=== PATIENT | female | born 1950 | race Caucasian/White ===

== ENCOUNTER 2024-04-08 09:38 | Inpatient (IN) | payer OTHER, SELFPAY ==
[2024-04-08] VITALS (16 sets, daily range): BP systolic 111–169; BP diastolic 61–111; BMI 16.3
[2024-04-08 07:15] LABS: Glucose - Point of Care 195 mg/dl (70-99)
--- NOTE | 2024-04-08 07:16 | EDRN ---
On HIGH FLOW NC at highest setting AND NRB @ 15 L
--- NOTE | 2024-04-08 07:26 | ED.GENMED ---
History of Present Illness
General
Chief Complaint: Breathing Problem
Source: patient
Exam Limitations: none
Time Seen by Provider: 04/08/24 07:22
History of Present Illness
History of Present Illness:
See MDM
Past History
Past History
ED Past Medical History: IDDM and Other (dementia)
ED Past Surgical History: None
Social History
Tobacco: Other
Alcohol: Other
Drug: Other
Personal: Other
Living: with family
Employment: Other
Family History
Family History: Unable to obtain
Phy Exam
Physical Exam
Physical Exam:
See MDM
Scores
Heart Failure Risk
Heart Failure Risk Score: Not Applicable
Course
Orders/Labs/Results
Orders:
Orders
04/08/24 07:22
Electrocardiogram (*1) Urgent
Reason for Study: Shortness of Breath
EKG- Treatment ONCE
CR Chest Portable - 1 View Urgent
Comment:
Reason For Exam: SOB, hypoxic
Reason Study Needs to be Portable: Patient Unstable
04/08/24 07:28
COVID-19 Antigen Urgent
Source: Nasal Swab
Complete Blood Count/With Diff Urgent
Comprehensive Metabolic Panel Urgent
Lactic Acid Q4H
Comment: CANCEL 2nd LACTIC ACID IF 1st LACTIC ACID IS LESS THAN 2
NT-proBNP Urgent
Troponin I Urgent
Blood Culture Q30M
JULIOCESAR Source: Blood/Venous
Specimen Description:
04/08/24 07:33
Bipap [RESP] Urgent
Patient to use own unit?: No
Inspiratory Pressure (cm H2O): 15
Expiratory Pressure (cm H2O): 8
04/08/24 07:43
Ipratropium/Albuterol Sulfate [Duoneb] 3 ml INH R NOW ONE
04/08/24 07:45
Blood Culture Q30M
JULIOCESAR Source: Blood/Venous
Specimen Description:
04/08/24 07:56
Piperacillin/Tazo 3.375 Gram [Zosyn] 3.375 gram in 50 ml IV NOW
Vancomycin 1 Gram/200 ml [Vancocin] 1 gram in 200 ml IV NOW
04/08/24 08:10
0.9% Sodium Chloride 1000 ml [Nss] 1,000 ml IV BOLUS
04/08/24 11:30
Lactic Acid Q4H
Comment: CANCEL 2nd LACTIC ACID IF 1st LACTIC ACID IS LESS THAN 2
Abnormal Lab Results
04/08/24 04/08/24
07:14 07:28
WBC 13.3 H 10^3/uL
(4.8-10.8)
MCHC 32.6 L g/dL
(33.0-37.0)
Abs Immat Gran (auto) 0.1 H 10^3/uL
(0-0.05)
Absolute Neuts (auto) 9.7 H 10^3/uL
(1.4-6.5)
Absolute Monos (auto) 1.0 H 10^3/uL
(0.1-0.6)
Immature Gran % 0.6 H %
(0-0.5)
Lymphocytes % 16.9 L %
(20.5-51.1)
Glucose 220 H mg/dl
(70-99)
Lactic Acid 4.9 H* mmol/L
(0.7-2.0)
POC Glucose 195 H mg/dl
(70-99)
04/08/24 07:28
04/08/24 07:28
Vital Signs
Initial and Last Documented VS:
Initial Vital Signs
Pulse Resp BP Pulse Ox
107 25 163/100 89
04/08/24 07:16 04/08/24 07:16 04/08/24 07:16 04/08/24 07:16
Last Documented Vital Signs
Temp Pulse Resp BP Pulse Ox
95.1 F L 110 22 140/111 96
04/08/24 07:50 04/08/24 08:03 04/08/24 08:03 04/08/24 07:35 04/08/24 08:03
MDM/Problems Addressed
Differential Diagnosis Includes:
HPI and MDM Narrative:
73-year-old female presenting in acute respiratory distress. Initially, there was concern for hypoglycemia. Her spouse gave her soda and sugar. She then developed gurgly respirations. Per EMS, there was concern for possible aspiration with
secretions in her airway. Patient denies a history of asthma or congestive heart failure. She was unable to tolerate CPAP by EMS placed on high flow nasal cannula. However, patient still hypoxic. Will place on BiPAP patient is in acute distress
but able to give verbal consent if intubation and ventilator was necessary
states that her sugar was low and she was about to go into a diabetic coma so he was pouring soda down her throat. She then started to gag
Physical exam
General: Uncomfortable, acute respiratory distress
HEENT: protecting airway
Neck: appears supple
CV: No evidence of cyanosis. Tachycardic
Resp: Accessory muscle use. Tachypnea, rhonchorous breath sounds
Abd: Non-distended
Extremities: No deformities. No leg edema
Neuro: alert
Psych: Anxious
Skin: Intact
Problems Addressed including Acute and Chronic Conditions affecting care:
1. Acute respiratory distress
Acuity: acute
Prognosis: unstable
Details: Will place on BiPAP.
2. [ ]
Acuity: acute
Prognosis: stable
Details:
3. [ ]
Acuity: acute
Prognosis: stable
Details:
4. [ ]
Acuity: acute
Prognosis: stable
Details:
5. [ ]
Acuity:
Prognosis:
Details:
Updates
7:35 AM on reevaluation, patient tolerating BiPAP well and improving
On multiple reassessments, symptoms are improving. Given the concern for aspiration, patient started on vancomycin and Zosyn. Patient found to have an elevated lactic acid. Will start IV fluids
Differential Diagnosis (but not limited to): Aspiration pneumonia, COVID, pulmonary edema
Testing considered: D-dimer
Drug therapy (if applicable): OTC meds, please see d/c instruction regarding Rx drugs
Amount and/or Complexity of Data Reviewed
Clinical info obtained from: Patient
External data reviewed: N/A
Labs I independently reviewed (but not limited to): Elevated lactic acid
Radiology: x-ray independently reviewed: Chest x-ray concerning for pneumonia
Pulse Ox: hypoxic
EKG independently reviewed: Significant artifact noted. Normal axis, sinus rhythm, no STEMI
Embossed Or Impressed Lettering Painter: N/A
Critical Care: The high probability of a clinically significant, sudden or life threatening deterioration of the pulmonary system(s) required my full and direct attention, intervention and personal management. The aggregate critical care time was 35
minutes. This time is in addition to time spent performing reported procedures but includes the following:
[x] Data Review and interpretation
[x] Patient assessment and monitoring of vital signs
[x] Documentation
[x] Medication orders and management
Risk of Complication:
Social Determinants of health: Good social support
Discussed with other providers: Hospitalist
Escalation of Care includes Admit/Obs: Given the respiratory distress requiring BiPAP, will admit
Occasional wrong word or 'sound a like' substitutions may have occurred due to the inherent limitations of voice recognition software. Read the chart carefully and recognize, using context, where substitutions have occurred.
*Critical Care Note
Total Time (30-74mins, 75-104mins- exclusive of procedures): 35 min
ED Attending Note
-
Portions of this chart may have been created with voice recognition software.� Occasional wrong word or��sound alike� substitutions may have occurred due to the inherent limitations of voice recognition software.
Discharge Plan
Departure
Patient Disposition: Admit
Date of Disposition: 04/08/24
Time of Disposition: 08:21
Admit to: IMU
Presentation/result/management discussed w/ accepting MD/DO: Hospitalist
Discharge Problem:
Acute respiratory distress, Hypoxia, Aspiration pneumonia
Prescriptions:
No Action
metformin 500 mg Tablet
500 mg PO DAILY
losartan 25 mg Tablet
25 mg PO DAILY
Referrals:
UNKNOWN - PT NOT,INTERVIEWE [Family Provider] -
Interventions
Interventions:
*Risk Screen - Suicide Last Done: 04/08/24 07:26
*Neglect/Abuse Screening Last Done: 04/08/24 07:26
*ED COVID-19 Vaccine History Last Done: 04/08/24 07:30
ED- Cardiac Assessment Last Done: 04/08/24 07:30
ED- Pulmonary Assessment Last Done: 04/08/24 07:31
Discharge Date and Time
Print Language: FRENCH
[2024-04-08 07:40] LABS: % Basophils 0.9 % (0-2); % Eosinophils 1.1 % (0-6); % Immature Granulocytes 0.6 % (0-0.5); % Lymphocytes 16.9 % (20.5-51.1); % Monocytes 7.3 % (1.7-9.3); % Neutrophils 73.2 % (42.2-75.2); Absolute Basophils 0.1 10^3/uL (0-0.2); Absolute Eosinophils 0.1 10^3/uL (0-0.7); Absolute Immature Granulocytes 0.1 10^3/uL (0-0.05); Absolute Lymphocytes 2.2 10^3/uL (1.2-3.4); Absolute Neutrophils 9.7 10^3/uL (1.4-6.5); Mean Corp Hgb Conc. 32.6 g/dL (33.0-37.0); Mean Corpuscular Hgb 29.5 pg (27.0-31.0); Mean Corpuscular Volume 90.5 fL (81.0-99.0); Mean Platelet Volume 10.3 fL (7.4-10.4); Nucleated Red Blood Cells % 0 %; Platelet Count 314 10^3/uL (130-400); Red Blood Cell Count 4.75 10^6/uL (4.20-5.40); Red Cell Dist. Width 13.6 % (11.5-14.5); White Blood Cell Count 13.3 10^3/uL (4.8-10.8)
[2024-04-08 07:52] LABS: ALT (SGPT) 22 U/L (0-35); AST (SGOT) 34 U/L (14-36); Albumin 4.9 g/dl (3.5-5.0); Alkaline Phosphatase 116 U/L (38-126); Blood Urea Nitrogen 10 mg/dl (7-17); Calcium 9.8 mg/dl (8.4-10.2); Carbon Dioxide 24 mmol/L (22-30); Chloride 101 mmol/L (98-107); Glucose 220 mg/dl (70-99); Potassium 3.6 mmol/L (3.5-5.1); Sodium 140 mmol/L (135-145); Total Bilirubin 0.6 mg/dl (0.2-1.3); Total Protein 8.1 g/dl (6.3-8.2); eGFR > 60.00
[2024-04-08 07:56] LABS: COVID-19 Antigen Negative (Negative)
[2024-04-08 08:03] LABS: NT-proBNP 1280 pg/ml; Troponin I < 0.012 ng/ml
[2024-04-08] MEDS: DUONEB 3 ML INH (08:03)
[2024-04-08 08:04] LABS: Lactic Acid 4.9 mmol/L (0.7-2.0)
[2024-04-08] MEDS: ZOSYN 50 IV ×3 (08:06→20:36)
--- NOTE | 2024-04-08 08:09 | EDRN ---
provider notifoied of critical value lactic
[2024-04-08] MEDS: NSS 1000 IV ×2 (08:15→12:30)
[2024-04-08] MEDS: VANCOCIN 200 IV (08:37)
--- NOTE | 2024-04-08 08:59 | HPS.HSE ---
Family Physician
-
Family Physician: INTERVIEWE UNKNOWN - PT NOT
Chief Complaint
-
resp distress
History of Present Illness
HPI: 73-year-old female PMH IDDM, Paroxysmal Atrial Fibrillation (not on OAC), Left Femur Fracture s/p ORIF, who was found unresponsive with low BG (45) by her and was given soda and sugar which resulted in respiratory distress. Her MS
improved with improved BS, however she developed SOB. She was unable to tolerate CPAP by EMS, hence was placed on high flow nasal cannula.
Patient remained hypoxic and was placed on BiPAP in the ED, which was then changed to high flow NC at 80%.
Patient is awake, but is a poor historian due to likely underlying cognitive impairment. She is NOT orientated to time (cannot recall which month/year we are in).
Collateral history obtained from on the phone.
Medical History
Past Medical History
Past Medical History: Reports Other
Additional Past Medical History:
IDDM
Paroxysmal Atrial Fibrillation (not on OAC)
Left Femur Fracture s/p ORIF
Past Surgical History: Reports Other
Social History
Unable to obtain full social history at this time due to: Dementia
Tobacco: Non-smoker
Personal:
Living: With Family
Family History
Family History: Not pertinent
Allergies / Home Medications
Allergies reflects when Allergies were last updated in [employer].
Home Medications with original date entered in [employer]
Allergy/Medication List:
Allergies
Allergy/AdvReac Type Severity Reaction Status Date / Time
No Known Allergies Allergy Unverified 04/08/24 07:39
Home Medications
insulin aspart U-100 100 unit/mL (3 mL) subcutaneous pen (Novolog FlexPen U-100 Insulin aspart) 0 sliding scale dose SC AC 04/08/24
insulin glargine 100 unit/mL (3 mL) subcutaneous pen (Lantus Solostar U-100 Insulin) 13 unit SC DAILY 04/08/24
losartan 25 mg tablet 25 mg PO DAILY 04/08/24
metformin 500 mg tablet 500 mg PO DAILY 04/08/24
vit C 333.3 mg-olive leaf extract 333.3 [id number]-[id number] 83.3 mg capsule (Immune Essentials) 1 cap PO DAILY 04/08/24
Review of Systems
-
Respiratory: Reports See HPI and Trouble Breathing
Physical Exam
Vital Signs
Vital Signs
Temp Pulse Resp BP Pulse Ox
35.1 C L 110 22 140/111 96
04/08/24 07:50 04/08/24 08:03 04/08/24 08:03 04/08/24 07:35 04/08/24 08:03
Physical Exam
General: Well Developed, Comfortable, Conversant, Respiratory Distress and Appears Chronically Ill
HEENT: NormoCephalic, Moist mucous membranes, Atraumatic and Oxygen (high flow NC)
Respiratory: Clear and Non Labored Respirations; No Accessory Resp Muscle Use
Cardiac: S1/S2 and Regular Rhythm; No Murmur or Rub
GI: Soft, Non Tender, Non Distended and Normal Bowel Sounds; No Organomegaly
Rectal: Deferred by Provider
Musculoskeletal: No Clubbing, No Cyanosis and No Edema
Skin: No Rash
Neuro: Awake; No AO x 3
Psych: Calm; No Intact Judgment/Insight
Laboratory Results
-
04/08/24 07:28
04/08/24 07:28
Laboratory Results
Lactic Acid 4.9 mmol/L (0.7-2.0) H* 04/08/24 07:28
Total Bilirubin 0.6 mg/dl (0.2-1.3) 04/08/24 07:28
AST 34 U/L (14-36) 04/08/24 07:28
ALT 22 U/L (0-35) 04/08/24 07:28
Alkaline Phosphatase 116 U/L (38-126) 04/08/24 07:28
Troponin I < 0.012 ng/ml 04/08/24 07:28
Data Reviewed
-
Diagnostic Radiology: Image Personally Visualized and interpreted and Report Reviewed by me
Lab Data: Labs Reviewed by me
Impression/Plan
-
HPI: 73-year-old female PMH IDDM, Paroxysmal Atrial Fibrillation (not on OAC), Left Femur Fracture s/p ORIF, who was found unresponsive with low BG (45) by her and was given soda and sugar which resulted in respiratory distress. Her MS
improved with improved BS, however she developed SOB. She was unable to tolerate CPAP by EMS, hence was placed on high flow nasal cannula.
Patient remained hypoxic and was placed on BiPAP in the ED, which was then changed to high flow NC at 80%.
Patient is awake, but is a poor historian due to likely underlying cognitive impairment. She is NOT orientated to time (cannot recall which month/year we are in).
Collateral history obtained from on the phone.
A/P:
# Acute hypoxic resp failure due to aspiration
# Likely Aspiration pneumonitis vs pneumonia from given soda and sugar given during unresponsiveness
Cont high flow NC, wean O2 as tolerated, she is not on home O2
CXR noted Mild to moderate pulmonary edema. Small left pleural effusion and bibasilar probable atelectasis.
Check procal, Check MRSA screen
Follow blood Cx that were sent from ED
Cont Zosyn coverage for now
SPL eval
Pulm CS
# Paroxysmal Atrial Fibrillation
Pt not on rate controlling meds or anticoagulation (Eliquis was taken off by PCP per )
# IDDM
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
Check A1C
Holding LEAD DATA ARCHITECT basal insulin Lantus due to hypoglycemia at home (BG at 45)
SSI coverage.
# Clinical deconditioning per
Pt has not been out of room much
PT OT eval
# Subjective back pain
check
DVT Prophylaxis: Lovenox SQ
Code Status: Full
d/w on the phone
[2024-04-08 10:00] LABS: Procalcitonin 0.07 ng/ml (0.0-0.25)
--- NOTE | 2024-04-08 10:03 | EDRN ---
Dr Marion states that XRAYS of LS sp/ TSP can be obtained in the AM after her resp status has stabilized and she can better tolerate them
[2024-04-08] MEDS: ZOFRAN 4 MG IV (12:20)
[2024-04-08 12:39] LABS: Lactic Acid 3.8 mmol/L (0.7-2.0)
--- NOTE | 2024-04-08 13:17 | CON.PUL ---
Consultation
Consultation Request
Date/Time Consultation Requested: 04/08
Date/Time Consultation Performed: 04/08
Reason for Consultation: Hypoxia
Medical History
-
History of Present Illness:
History obtained from the chart, hospital records, ED records, outpatient records, patient. Attempted to contact , no answer. 73-year-old female who states she woke up in the [place] because of hypoglycemia. She usually has to take sugar
and soda in the melan[place]. Her monitor alarms when her sugar goes down. Per ED records, she developed respiratory distress after this, concern for aspiration. EMS was contacted. Upon arrival to [facility], pulse 107, breathing at 25,
blood pressure 163/100, 89%. Patient was unable to tolerate CPAP placed by EMS and instead was placed on high flow oxygen. Per ED records, patient was in acute respiratory distress, with accessory muscle use, rhonchi bilaterally. We are asked to
help from pulmonary standpoint 04/08/2024
Presently during my assessment, patient is comfortable in no respiratory distress. She remains on high flow oxygen. She is conversant, denies any shortness of breath. Few crackles at base otherwise adequate air exchange
.
PMH: Diabetes, history of DKA, chronic compression fracture. History of fall with left hip fracture status post replacement 2021. History of Covid 2021. History of paroxysmal atrial fibrillation/SVT, hypertension, dementia. Records also suggest
history of noncompliance
Past Medical History
Past Medical History: None (See above)
Past Surgical History: None (See above)
Social History
Tobacco: Former Smoker ([id number], quit around 1999)
Alcohol: None
Drug: None
Personal:
Living: With Family
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
Family History
Family History: Other (Negative for blood clots, pneumonia, lung cancer)
Allergies / Home Medications
Allergies
Allergy/AdvReac Type Severity Reaction Status Date / Time
No Known Allergies Allergy Unverified 04/08/24 07:39
Home Medications
�Medication �Instructions �Recorded �Confirmed �Last Taken �Type
insulin aspart U-100 100 unit/mL 0 sliding scale dose SC AC Diabetes 04/08/24 04/08/24 Unknown History
(3 mL) subcutaneous pen (Novolog
FlexPen U-100 Insulin aspart)
insulin glargine 100 unit/mL (3 13 unit SC DAILY Diabetes 04/08/24 04/08/24 Unknown History
mL) subcutaneous pen (Lantus
Solostar U-100 Insulin)
losartan 25 mg tablet 25 mg PO DAILY Blood Pressure 04/08/24 04/08/24 Unknown History
metformin 500 mg tablet 500 mg PO DAILY Diabetes 04/08/24 04/08/24 Unknown History
vit C 333.3 mg-olive leaf extract 1 cap PO DAILY Supplement 04/08/24 04/08/24 Unknown History
333.3 rn-[id number]-[id number] 83.3 mg
capsule (Immune Essentials)
Review of Systems
-
History Source: Patient and Family
All other systems: Negative unless noted
Vitals / Labs / Diagnostic Testing
Vital Signs
Temp Pulse Resp BP Pulse Ox
95.1 F L 100 21 154/85 93
04/08/24 07:50 04/08/24 12:45 04/08/24 12:45 04/08/24 12:03 04/08/24 12:45
Lab Data
04/08/24 07:28
04/08/24 07:28
Diagnostic Testing:
Physical Exam
-
HEENT: Normocephalic and Anicteric
Cardiovascular: S1/S2, Regular Rhythm, Murmur (n) and Rub (n)
Respiratory: Wheeze (n), Rales (Few at base), Rhonchi (n) and Non-Labored Respirations
GI: Soft, Non Distended and Non Tender
Neurology: Awake, Alert, Oriented and No Motor Deficits (Moves all extremities, able to sit up with minimal assistance)
Skin: Good Color and Other (Right upper extremity tattoo)
General: Comfortable
Assessment
-
73-year-old female with history of diabetes, noncompliance, history of DKA, paroxysmal atrial fibrillation, questionable dementia who presents with acute respiratory insufficiency, hypoxia, suspected aspiration. Patient required high flow oxygen in
the field. We are asked to help from pulmonary standpoint
Suspected acute aspiration
Bibasilar infiltrate
Acute hypoxic respiratory insufficiency requiring high flow oxygen
80% saturation
Insulin-dependent diabetes
Noncompliant
History of DKA 2021, history of frequent hypoglycemia according to patient
Leukocytosis
Elevated lactate
Sinus tachycardia
Conditions present prior to admission
Paroxysmal atrial fibrillation, not on anticoagulation
History of fall with left femur fracture, ORIF 2021
Dementia
52-empn-spex history of smoking, quit 1999
Plan/recommendations
At this time, patient appears to be comfortable. She is not in respiratory distress. She remains on high flow oxygen
96% saturation, wean down to 60 L / 70%
Chest exam with bibasilar crackles otherwise good air exchange. ED records suggest respiratory distress with rhonchi. This appears to clearly have improved at least by exam
Moving forward
Continue to wean oxygen as you are. Suspect this may have been an acute aspiration event
Presented while 'drinking sugar water' in the middle the night for hypoglycemia. Per records, patient developed gurgling and respiratory distress thereafter
Continue Zosyn therapy for now
Follow blood sugars. Anion gap presently 16. Follow given history of DKA
Elevated lactate, trending down
No indication for BiPAP at this time
Head of bed elevated, aspiration precautions
DVT prophylaxis: Remains on Lovenox
Attempted to contact for additional information. No answer
We will follow
--- NOTE | 2024-04-08 14:21 | PTCARENOTE ---
Pt received from ED. Pt with intermittent confusion. Admission questions completed to best of pt's ability.
--- NOTE | 2024-04-08 15:17 | PTOTSP ---
Dysphagia Evaluation
Patient is a 73 year old female admitted with respiratory distress after a suspected aspiration event while unresponsive due to low blood sugar. She is at an elevated acute risk for dysphagia/aspiration at this time given her current respiratory
status (i.e., 60 LPM HFNC, 70% FiO2) and altered mentation (restless, confused, poor awareness of swallowing tasks, required repeated direct verbal cues in order to swallow). Patient has chronic risk factors for dysphagia (i.e., dementia).
Recommend:
1. Temporary NPO
2. Medications via non-oral means
3. Hold Aspiration Risk Hydration Protocol due to AMS.
4. Dysphagia follow up at the acute care level.
[2024-04-08] MEDS: APRESOLINE 5 MG IV (15:58)
--- NOTE | 2024-04-08 17:10 | PTCARENOTE ---
Received pt from the ED on high flow 60L O2, 70% O2, POX 96%. AAOx2, restless and participates in confused conversation, can follow commands but has a short attention span and requires constant redirection. Lungs are coarse @ the bases, moist
occasional cough. Remainder of assessment as documented. Pt arrives hypertensive, PRN Hydralazine administered, see MAR. Pt seen and assessed by speech, recommended to continue NPO status, without PO meds, until pt's mentation improves and
additional assessments can be completed. Pt currently resting comfortably in bed, bed alarm in place, call ramirez within reach.
[2024-04-08 17:24] LABS: Lactic Acid 3.5 mmol/L (0.7-2.0)
[2024-04-08 17:56] LABS: Glucose - Point of Care 364 mg/dl (70-99)
[2024-04-08] MEDS: LOVENOX 30 MG SC (18:15)
[2024-04-08] MEDS: NOVOLOG FLEXPEN-LOW RESISTANCE 5 UNITS SC (18:19)
[2024-04-08 21:41] LABS: Lactic Acid 4.4 mmol/L (0.7-2.0)
[2024-04-08] MEDS: LASIX 20 MG IV (22:22)
[2024-04-08 22:50] LABS: B.E. 2.1 mmol/L; HCO3 25.3 mmol/L (21-28); O2 Saturation % 97.4 % (94-98); PCO2 34 mmHg (32-35); PO2 72 mmHg (83-108); pH 7.48 (7.35-7.45)
[2024-04-08 23:43] LABS: Glucose - Point of Care 199 mg/dl (70-99)
[2024-04-09] VITALS (15 sets, daily range): BP systolic 104–135; BP diastolic 57–89; PULSE 91–92; O2SAT 95–96; BMI 16.3
[2024-04-09 01:40] LABS: Hematocrit 27.5 % (37.0-47.0); Hemoglobin 9.6 g/dL (12.0-16.0); Mean Corp Hgb Conc. 34.9 g/dL (33.0-37.0); Mean Corpuscular Hgb 29.8 pg (27.0-31.0); Mean Corpuscular Volume 85.4 fL (81.0-99.0); Mean Platelet Volume 9.9 fL (7.4-10.4); Platelet Count 159 10^3/uL (130-400); Red Blood Cell Count 3.22 10^6/uL (4.20-5.40); Red Cell Dist. Width 13.6 % (11.5-14.5); White Blood Cell Count 6.2 10^3/uL (4.8-10.8)
[2024-04-09] MEDS: NOVOLOG FLEXPEN-LOW RESISTANCE 2 UNITS SC ×2 (01:41→05:57)
[2024-04-09 01:44] LABS: Glucose - Point of Care 208 mg/dl (70-99)
[2024-04-09 02:14] LABS: ALT (SGPT) 14 U/L (0-35); AST (SGOT) 31 U/L (14-36); Albumin 2.1 g/dl (3.5-5.0); Alkaline Phosphatase 53 U/L (38-126); Blood Urea Nitrogen 10 mg/dl (7-17); Carbon Dioxide 18 mmol/L (22-30); Chloride 115 mmol/L (98-107); Estimated Creatinine Clearance 60 ml/min; Glucose 166 mg/dl (70-99); Potassium 3.2 mmol/L (3.5-5.1); Sodium 137 mmol/L (135-145); Total Bilirubin 0.8 mg/dl (0.2-1.3); Total Protein 3.9 g/dl (6.3-8.2); eGFR > 60.00
[2024-04-09 02:25] LABS: Absolute Neutrophils -Man Diff 5.7 10^3/uL (1.4-6.5); Band Neutrophils 19 % (0-3); Lymphocytes 5 % (20-51); Monocytes 3 % (2-9); Normal RBC Morphology Yes; Platelets Checked Yes; Segmented Neutrophils 73 % (42-75); Total Cells Counted 100
[2024-04-09 02:30] LABS: Lactic Acid 1.7 mmol/L (0.7-2.0)
[2024-04-09] MEDS: ZOSYN 50 IV ×4 (02:35→20:43)
[2024-04-09] MEDS: NSS 1000 IV (05:56)
[2024-04-09 06:02] LABS: Glucose - Point of Care 243 mg/dl (70-99)
[2024-04-09 06:03] LABS: Hematocrit 38.7 % (37.0-47.0); Hemoglobin 12.7 g/dL (12.0-16.0); Mean Corp Hgb Conc. 32.8 g/dL (33.0-37.0); Mean Corpuscular Volume 88.4 fL (81.0-99.0); Nucleated Red Blood Cells % 0 %; Platelet Count 203 10^3/uL (130-400); Red Blood Cell Count 4.38 10^6/uL (4.20-5.40); Red Cell Dist. Width 13.5 % (11.5-14.5); White Blood Cell Count 11.1 10^3/uL (4.8-10.8)
[2024-04-09 06:25] LABS: Lactic Acid 2.8 mmol/L (0.7-2.0)
[2024-04-09 06:30] LABS: Blood Urea Nitrogen 16 mg/dl (7-17); Calcium 8.7 mg/dl (8.4-10.2); Carbon Dioxide 23 mmol/L (22-30); Chloride 102 mmol/L (98-107); Estimated Creatinine Clearance 36 ml/min; Glucose 235 mg/dl (70-99); Magnesium 1.3 mg/dl (1.6-2.3); Potassium 5.2 mmol/L (3.5-5.1); Sodium 135 mmol/L (135-145); eGFR 58.75
--- NOTE | 2024-04-09 06:34 | PTCARENOTE ---
critical received for calcium of 6.0. labs were drawn above running N/S. UTILITY FORESTER aware of skewed labs. Instructed to redraw labs in AM.
--- NOTE | 2024-04-09 07:41 | W.PN.HOSP.TC ---
Today's Communication/Plan
-
see A/P
Assessment / Plan
Assessment / Plan
HPI: 73-year-old female PMH IDDM, Paroxysmal Atrial Fibrillation (not on OAC), Left Femur Fracture s/p ORIF, who was found unresponsive with low BG (45) by her and was given soda and sugar which resulted in respiratory distress. Her MS
improved with improved BS, however she developed SOB. She was unable to tolerate CPAP by EMS, hence was placed on high flow nasal cannula.
Patient remained hypoxic and was placed on BiPAP in the ED, which was then changed to high flow NC at 80%.
Patient is awake, but is a poor historian due to likely underlying cognitive impairment. She is NOT orientated to time (cannot recall which month/year we are in).
Collateral history obtained from on the phone.
A/P:
# Acute hypoxic resp failure due to aspiration pneumonitis from given soda and sugar during unresponsive episode
Cont high flow NC, wean O2 as tolerated, she is not on home O2
CXR noted Mild to moderate pulmonary edema. Small left pleural effusion and bibasilar probable atelectasis.
procal negative,
Follow MRSA screen
Follow blood Cx that were sent from ED
Cont Zosyn coverage x5 days
NPO with gentle IVF, IV lasix 20 mg x2 doses
Daily SPL eval
Pulm on board
# Hypomagnesemia
replete IV
# Paroxysmal Atrial Fibrillation
Pt not on rate controlling med or anticoagulation (Eliquis was taken off by PCP per )
# IDDM
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
Check A1C
resume low dose Lantus at 5 units daily (SHORTAGE WORKER 13 units daily)
SSI coverage.
# Clinical deconditioning per
Pt has not been out of room much
PT OT eval
# Subjective back pain
check thoracic/lumbar XR when able
# Dementia, unknown type
Pt is awake but not orientated. This appears to be her baseline MS per
DVT Prophylaxis: Lovenox SQ
Code Status: Full
left voicemail for
Anticipated Discharge: > 48 hours
Subjective/Interval History
-
Date of Service: April 09, 2024
Objective Data
-
Labs:
Laboratory Results
04/08/24 04/09/24 04/09/24
22:45 01:31 05:49
WBC 6.2 11.1 H
Hgb 9.6 L D 12.7 D
Hct 27.5 L 38.7
Plt Count 159 D 203 D
HCO3 25.3
Sodium 137 135
Potassium 3.2 L 5.2 H D
Chloride 115 H 102
Carbon Dioxide 18 L 23
BUN 10 16
Creatinine 0.6 1.0
Glucose 166 H 235 H
Calcium 6.0 L* D 8.7 D
Total Bilirubin 0.8
AST 31
ALT 14
Alkaline Phosphatase 53
Vital Signs:
Vital Signs
Temp Pulse Resp BP Pulse Ox
36.9 C 97 18 128/73 99
04/09/24 03:33 04/09/24 01:30 04/09/24 01:30 04/09/24 00:11 04/09/24 04:30
I&O
04/08/24 04/09/24 04/10/24
06:59 06:59 06:59
Intake Total 720 / 720
Output Total 100 / 100
Balance 620 / 620
Review of Systems
-
Unable to obtain full review of systems at this time due to: Dementia
Physical Exam
-
General: Well Developed, Well Nourished, Comfortable, Respiratory Distress, Conversant and Appears Chronically Ill
HEENT: Normocephalic, Atraumatic, Nose Appears Normal, Ears Appear Normal and Oxygen (high flow NC)
Respiratory: Clear to Auscultation and Non Labored Respirations; Negative Accessory Resp Muscle Use
Cardiac: Regular Rhythm and S1/S2
GI: Soft, Nontender, Nondistended and Normal Bowel Sounds
Skin: Warm and Dry
Neuro: Awake
Psych: Calm and Apparent Dementia
Data Reviewed
-
Diagnostic Radiology: Image personally visualized and interpreted and Report Reviewed by me
Labs: Labs Reviewed by me
[2024-04-09] MEDS: LASIX 20 MG IV (08:49)
[2024-04-09] MEDS: MAGNESIUM SULFATE 50 IV (08:52)
[2024-04-09] MEDS: LANTUS 0.05 UNITS SC (09:03)
[2024-04-09 09:14] LABS: Glucose - Point of Care 203 mg/dl (70-99)
[2024-04-09 09:49] LABS: Glycohemoglobin (HgbA1c) 8.9 % (4.0-5.6)
--- NOTE | 2024-04-09 10:47 | W.PN.PUL3 ---
Today's Communication / Plan
-
HFNC weaning down, can likely transition to midflow is continues to improve
Remains NPO, speech following
Continue abx, can likely stop at 5 days for aspiration
Encourage OOB, PT/OT
Nebs PRN, IS
Slow progress
Assessment
-
73-year-old female with history of diabetes, noncompliance, history of DKA, paroxysmal atrial fibrillation, questionable dementia who presents with acute respiratory insufficiency, hypoxia, suspected aspiration. Patient required high flow oxygen in
the field. We are asked to help from pulmonary standpoint
Suspected acute aspiration
Bibasilar infiltrate
Acute hypoxic respiratory insufficiency requiring high flow oxygen
80% saturation
Insulin-dependent diabetes
Noncompliant
History of DKA 2021, history of frequent hypoglycemia according to patient
Leukocytosis
Elevated lactate
Sinus tachycardia
Conditions present prior to admission
Paroxysmal atrial fibrillation, not on anticoagulation
History of fall with left femur fracture, ORIF 2021
Dementia
[id number] history of smoking, quit 1999
Plan/recommendations
At this time, patient appears to be comfortable. She is not in respiratory distress.
She remains on high flow oxygen
96% saturation, weaned down to 40 Lpm / 70%, can likely wean down further
Chest exam with bibasilar crackles otherwise good air exchange.
ED records suggest respiratory distress with rhonchi. This appears to clearly have improved at least by exam
ABG 04/08/24: 7.48/34/72/[address] if not improving
proBNP 1280
ECHO from 2020 with preserved function
She is maintained NPO
Suspect this may have been an acute aspiration event
Presented while 'drinking sugar water' in the middle the night for hypoglycemia. Per records, patient developed gurgling and respiratory distress thereafter
Speech following, high risk
Continue Zosyn therapy for now
Follow blood sugars. Anion gap presently 16. Follow given history of DKA
Elevated lactate, trending down
No indication for BiPAP at this time
Head of bed elevated, aspiration precautions
DVT prophylaxis: Remains on Lovenox
Attempted to contact for additional information. No answer
We will follow
Diagnostic Data
CXR 04/08/24- Mild to moderate pulmonary edema. Small left pleural effusion and bibasilar probable atelectasis.
11/08/21- No radiographic evidence of acute cardiopulmonary abnormality.
ECHO 05/29/21- Normal left ventricular size, wall thickness and systolic function. No regional wall motion abnormalities are seen. LV ejection fraction is 65-70% by visual assessment. Trace tricuspid regurgitation. No significant valvular disease.
Compared to previous echo from August 05, 2015, there is no significant change.
Subjective Data
-
Date of Service:
Date of Service: April 09, 2024
Chief Complaint: Pulmonary Follow Up
Subjective:
remains on HFNC, but weaning down
no new complaints
feels tired
Objective Data
Data Reviewed
Vital Signs / I&O / Oxygen:
Vital Signs
Temp Pulse Resp BP Pulse Ox
98.6 F 91 18 135/78 97
04/09/24 07:12 04/09/24 08:49 04/09/24 01:30 04/09/24 08:49 04/09/24 08:23
Intake and Output
04/08/24 04/09/24 04/10/24
06:59 06:59 06:59
Intake Total 720 / 720
Output Total 100 / 100
Balance 620 / 620
SaO2 97
Nasal Cannula flow liters per 55
minute
Physical Exam
General: Comfortable, Other (deconditioned) and Other (NAD, chronically ill appearing)
HEENT: Normocephalic, Anicteric and Moist Mucous Membranes
Cardiovascular: S1-S2 and Regular Rhythm
Respiratory: Crackles and Non-Labored Respirations
GI: Soft, Non Distended and Non Tender
Neurology: Awake, Alert, Oriented, AO x 3 and No Motor Deficits
Skin: Warm, Dry and Good Color
Labs/Micro/Reports
Lab Data
04/09/24 05:49
04/09/24 05:49
Laboratory Results
04/08/24
22:45
pH 7.48 H
pCO2 34
pO2 72 L
HCO3 25.3
O2 Delivery Level
Microbiology
04/08/24 07:45 Blood/Venous Blood Culture - Preliminary
No Growth in 24 hours- Final report to follow
04/08/24 07:28 Blood/Venous Blood Culture - Preliminary
No Growth in 24 hours- Final report to follow
--- NOTE | 2024-04-09 10:55 | PTOTSP ---
Speech Therapy
Presentation: Patient was oriented to self and remains confused but cooperative.
Swallowing Function: MECHANICAL PENCILS ASSEMBLER trialed ice chips individually presented in which patient appeared to tolerate as she SpO2 remained WNL and she did not exhibit any overt clinical s/sx of aspiration. Patient was presented with several tsp presentations of
thin liquid in which she demonstrated reflexive coughing and her SpO2 decreased but remained WNL.
Given patient's current clinical presentation and oxygen requirement, recommend NPO at this time with supervised ice chips (ARHP) after oral care.
Recommendations: NPO with ARHP (sparing ice chips)
Plan: MECHANICAL PENCILS ASSEMBLER will continue to follow; pending hospitalization.
[2024-04-09 11:11] LABS: Absolute Neutrophils -Man Diff 10.1 10^3/uL (1.4-6.5); Band Neutrophils 28 % (0-3); Lymphocytes 5 % (20-51); Segmented Neutrophils 63 % (42-75)
[2024-04-09 11:12] LABS: Monocytes 2 % (2-9); Normal RBC Morphology Yes; Platelets Checked YES
[2024-04-09 11:14] LABS: Total Cells Counted 100
--- NOTE | 2024-04-09 11:45 | RESPNOTE ---
High-flow nasal cannula decreased to 40 LPM and 60%, SpO2 96%.
[2024-04-09 12:20] LABS: Glucose - Point of Care 247 mg/dl (70-99)
[2024-04-09] MEDS: NOVOLOG FLEXPEN-LOW RESISTANCE 3 UNITS SC (12:53)
--- NOTE | 2024-04-09 14:35 | PTCARENOTE ---
Pt noted in Afib in the 160's on the monitor ~ 4 minutes, converted to NSR without intervention. Pt asleep during this episode, arouses easily, reports no complaints. BP 106/60. Hospitalist made aware, no new orders at this time.
[2024-04-09 15:36] LABS: NT-proBNP 5290 pg/ml
[2024-04-09 18:07] LABS: Glucose - Point of Care 144 mg/dl (70-99)
[2024-04-09] MEDS: LOVENOX 30 MG SC (18:17)
[2024-04-09] MEDS: NOVOLOG FLEXPEN-LOW RESISTANCE SC ×2 (18:17→23:56)
[2024-04-09 23:55] LABS: Glucose - Point of Care 127 mg/dl (70-99)
[2024-04-10] VITALS (15 sets, daily range): BP systolic 116–190; BP diastolic 66–124; BMI 16.3
[2024-04-10] MEDS: NSS 1000 IV ×2 (00:11→17:55)
[2024-04-10] MEDS: ZOSYN 50 IV ×4 (02:13→20:20)
[2024-04-10 05:01] LABS: % Basophils 0.7 % (0-2); % Eosinophils 0.4 % (0-6); % Lymphocytes 7.8 % (20.5-51.1); % Monocytes 5.5 % (1.7-9.3); % Neutrophils 84.6 % (42.2-75.2); Absolute Basophils 0.1 10^3/uL (0-0.2); Absolute Eosinophils 0.1 10^3/uL (0-0.7); Absolute Immature Granulocytes 0.1 10^3/uL (0-0.05); Absolute Lymphocytes 0.9 10^3/uL (1.2-3.4); Absolute Monocytes 0.6 10^3/uL (0.1-0.6); Absolute Neutrophils 9.5 10^3/uL (1.4-6.5); Hematocrit 32.8 % (37.0-47.0); Hemoglobin 11.1 g/dL (12.0-16.0); Mean Corp Hgb Conc. 33.8 g/dL (33.0-37.0); Mean Corpuscular Hgb 29.9 pg (27.0-31.0); Mean Corpuscular Volume 88.4 fL (81.0-99.0); Mean Platelet Volume 10.1 fL (7.4-10.4); Nucleated Red Blood Cells % 0 %; Platelet Count 181 10^3/uL (130-400); Red Blood Cell Count 3.71 10^6/uL (4.20-5.40); White Blood Cell Count 11.2 10^3/uL (4.8-10.8)
[2024-04-10 05:24] LABS: Glucose - Point of Care 116 mg/dl (70-99)
[2024-04-10 05:27] LABS: Blood Urea Nitrogen 24 mg/dl (7-17); Calcium 7.9 mg/dl (8.4-10.2); Carbon Dioxide 25 mmol/L (22-30); Chloride 104 mmol/L (98-107); Estimated Creatinine Clearance 33 ml/min; Glucose 110 mg/dl (70-99); Magnesium 1.9 mg/dl (1.6-2.3); Potassium 3.6 mmol/L (3.5-5.1); Sodium 136 mmol/L (135-145)
[2024-04-10] MEDS: NOVOLOG FLEXPEN-LOW RESISTANCE SC ×2 (05:30→12:20)
--- NOTE | 2024-04-10 08:01 | W.PN.HOSP.TC ---
Addendum entered and electronically signed by Clare Marion MD 04/10/24 12:18:
Lantus held this morning due to normoglycemia (was ordered for 5 units, BOTTOM STAINER at 13 units daily).
Adjust Lantus to 3 units daily given patient started with pur�ed diet
Original Note:
Today's Communication/Plan
-
see A/P
Assessment / Plan
Assessment / Plan
HPI: 73-year-old female PMH IDDM, Paroxysmal Atrial Fibrillation (not on OAC), Left Femur Fracture s/p ORIF, who was found unresponsive with low BG (45) by her and was given soda and sugar which resulted in respiratory distress. Her MS
improved with improved BS, however she developed SOB. She was unable to tolerate CPAP by EMS, hence was placed on high flow nasal cannula.
Patient remained hypoxic and was placed on BiPAP in the ED, which was then changed to high flow NC at 80%.
Patient is awake, but is a poor historian due to likely underlying cognitive impairment. She is NOT orientated to time (cannot recall which month/year we are in).
Collateral history obtained from on the phone.
A/P:
# Acute hypoxic resp failure due to aspiration pneumonitis from given soda and sugar during unresponsive episode
Cont high flow NC, weaned from 90% to 50%, cont to wean O2 as tolerated, she is not on home O2
CXR noted Mild to moderate pulmonary edema. Small left pleural effusion and bibasilar probable atelectasis.
procal negative,
Follow MRSA screen
blood Cx sent from ED negative
Cont Zosyn coverage x5 days
NPO with gentle IVF, s/p IV lasix 20 mg x2 doses due to CXR noted Mild to moderate pulmonary edema. Hold further lasix with ROSANNA
Daily SPL eval,
cont gentle IVF while NPO
Pulm on board
# Hypomagnesemia
repleted IV
# ROSANNA likely due to IV Lasix
SCr 1.1 from 0.6
Monitor closely
cont gentle IVF
# Paroxysmal Atrial Fibrillation
Pt not on rate controlling med or anticoagulation (Eliquis was taken off by PCP per )
# IDDM
# Concern for hypoglycemia BOTTOM STAINER
A1C 8.9%
resumes Lantus low dose at 5 units daily (BOTTOM STAINER 13 units daily)
SSI coverage.
# Clinical deconditioning per
Pt has not been out of room much
PT OT recc SNF
# Subjective back pain
check thoracic/lumbar XR when able
# Dementia, unknown type
Pt is awake but not orientated. This appears to be her baseline MS per
DVT Prophylaxis: Lovenox SQ
Code Status: Full
Anticipated Discharge: > 48 hours
Subjective/Interval History
-
Date of Service: April 10, 2024
Objective Data
-
Labs:
Laboratory Results
04/10/24
04:53
WBC 11.2 H
Hgb 11.1 L
Hct 32.8 L
Plt Count 181
Sodium 136
Potassium 3.6 D
Chloride 104
Carbon Dioxide 25
BUN 24 H
Creatinine 1.1 H
Glucose 110 H
Calcium 7.9 L
Vital Signs:
Vital Signs
Temp Pulse Resp BP Pulse Ox
37.2 C 85 18 123/77 96
04/10/24 02:53 04/10/24 06:00 04/10/24 06:00 04/10/24 06:00 04/10/24 06:00
I&O
04/09/24 04/10/24 04/11/24
06:59 06:59 06:59
Intake Total 720 / 720 870 / 870
Output Total 100 / 100 150 / 150
Balance 620 / 620 720 / 720
Review of Systems
-
Unable to obtain full review of systems at this time due to: Dementia
All other systems: Reviewed and negative
Physical Exam
-
General: Well Developed, Well Nourished, Comfortable, Respiratory Distress, Conversant and Appears Chronically Ill
HEENT: Normocephalic, Atraumatic, Nose Appears Normal, Ears Appear Normal and Oxygen (high flow NC)
Respiratory: Clear to Auscultation and Non Labored Respirations; Negative Accessory Resp Muscle Use
Cardiac: Regular Rhythm and S1/S2
GI: Soft, Nontender, Nondistended and Normal Bowel Sounds
Skin: Warm and Dry
Neuro: Awake
Psych: Calm and Apparent Dementia
Data Reviewed
-
Diagnostic Radiology: Image personally visualized and interpreted and Report Reviewed by me
Labs: Labs Reviewed by me
[2024-04-10] MEDS: LANTUS SC (08:34)
--- NOTE | 2024-04-10 09:35 | PTCARENOTE ---
Assumed care of pt from night RN, pt AAOx2-3, rings appropriately. Continues on high-flow O2 at 15L/40%, SPO2 96%. Pt coughing up thick [place] mucous at times. IV Zosyn administered as ordered and pt continues on IVF. Seen by ST and pt to start pureed
diet at lunch with supervision. Repositioned in bed frequently. Will continue to monitor through shift.
--- NOTE | 2024-04-10 09:56 | W.PN.PUL3 ---
Today's Communication / Plan
-
Improving, HFNC requirements decreasing
Can likely transition to midflow today
Complete abx for 5 days
PT/OT eval, OOB/IS
Assessment
-
73-year-old female with history of diabetes, noncompliance, history of DKA, paroxysmal atrial fibrillation, questionable dementia who presents with acute respiratory insufficiency, hypoxia, suspected aspiration. Patient required high flow oxygen in
the field. We are asked to help from pulmonary standpoint
Suspected acute aspiration
Bibasilar infiltrate
Acute hypoxic respiratory insufficiency requiring high flow oxygen
80% saturation
Insulin-dependent diabetes
Noncompliant
History of DKA 2021, history of frequent hypoglycemia according to patient
Leukocytosis
Elevated lactate
Sinus tachycardia
Conditions present prior to admission
Paroxysmal atrial fibrillation, not on anticoagulation
History of fall with left femur fracture, ORIF 2021
Dementia
[id number] history of smoking, quit 1999
Plan/recommendations
At this time, patient appears to be comfortable. She is not in respiratory distress.
She remains on high flow oxygen
96% saturation, weaned down to 40 Lpm / 40%, can likely transition to midflow
Chest exam with bibasilar crackles otherwise good air exchange.
ED records suggest respiratory distress with rhonchi. This appears to clearly have improved at least by exam
ABG 04/08/24: 7.48/34//25
proBNP 1280
ECHO from 2020 with preserved function
She is maintained NPO
Suspect this may have been an acute aspiration event
Presented while 'drinking sugar water' in the middle the night for hypoglycemia. Per records, patient developed gurgling and respiratory distress thereafter
Speech following, high risk
Continue Zosyn therapy for now
Follow blood sugars. Anion gap presently 16. Follow given history of DKA
Elevated lactate, trending down
Can likely stop abx at 5 days
No indication for BiPAP at this time
Head of bed elevated, aspiration precautions
DVT prophylaxis: Remains on Lovenox
PT/OT, OOB
Diagnostic Data
CXR 04/08/24- Mild to moderate pulmonary edema. Small left pleural effusion and bibasilar probable atelectasis.
11/08/21- No radiographic evidence of acute cardiopulmonary abnormality.
ECHO 05/29/21- Normal left ventricular size, wall thickness and systolic function. No regional wall motion abnormalities are seen. LV ejection fraction is 65-70% by visual assessment. Trace tricuspid regurgitation. No significant valvular disease.
Compared to previous echo from August 05, 2015, there is no significant change.
Subjective Data
-
Date of Service:
Date of Service: April 10, 2024
Chief Complaint: Pulmonary Follow Up
Subjective:
improving today, on HFNC but requirements are coming down
no new complaints
Objective Data
Data Reviewed
Vital Signs / I&O / Oxygen:
Vital Signs
Temp Pulse Resp BP Pulse Ox
98.4 F 82 19 147/80 97
04/10/24 07:20 04/10/24 08:00 04/10/24 08:00 04/10/24 08:00 04/10/24 08:00
Intake and Output
04/09/24 04/10/24 04/11/24
06:59 06:59 06:59
Intake Total 720 / 720 870 / 870
Output Total 100 / 100 150 / 150 75 / 75
Balance 620 / 620 720 / 720 -75 / -75
SaO2 97
Nasal Cannula flow liters per 40
minute
Physical Exam
General: Comfortable, Other (deconditioned) and Other (NAD, chronically ill appearing)
HEENT: Normocephalic, Anicteric and Moist Mucous Membranes
Cardiovascular: S1-S2 and Regular Rhythm
Respiratory: Crackles and Non-Labored Respirations
GI: Soft, Non Distended and Non Tender
Neurology: Awake, Alert, Oriented, AO x 3 and No Motor Deficits
Skin: Warm, Dry and Good Color
Labs/Micro/Reports
Lab Data
04/10/24 04:53
04/10/24 04:53
Microbiology
04/08/24 16:47 Nose MRSA Screen - Final
No Methicillin Resistant Staphylococcus aureus isolated.
04/08/24 07:45 Blood/Venous Blood Culture - Preliminary
No Growth in 48 hours- Final report to follow
04/08/24 07:28 Blood/Venous Blood Culture - Preliminary
No Growth in 48 hours- Final report to follow
--- NOTE | 2024-04-10 10:13 | PTOTSP ---
Speech Therapy
Presentation: Patient was seen positioned upright in her bed. Patient remains on high flow but her levels have improved greatly. Patient appears to be more energetic, communicative, and participatory today in comparison to 04/09. Patient shared that
she is hungry and enjoys the ice chips.
Per RN, patient tolerating ice chips and has been doing well with the reduced O2 requirement. Of note, remains on high flow.
Swallowing Function: RECONSTRUCTIVE SURGEON observed patient with several ice chip presentations and trials of thin liquids via tsp and straw and puree via tsp in which patient appeared to tolerate as she did not exhibit any overt clinical s/sx of aspiration or
difficulty with mastication/ manipulation. Patient denied any dysphagia complaints. Patient's RR and SpO2 remained WNL during the entire session. No further PO trials were presented during the assessment due to patient remaining high risk for
aspiration (high flow O2 and confusion).
Given the above information, recommend trial upgrade diet to puree solids and thin liquids with full assistance and supervision.
Recommendations:
1) Trial of IDDSI 4; puree solids and thin liquids
2) FULL assistance and supervision with PO
3) PO only when alert
4) PO only when Sp02 is >90% and RR<30
5) Medications as tolerated
Plan: RECONSTRUCTIVE SURGEON will continue to follow; pending hospitalization.
[2024-04-10 12:15] LABS: Glucose - Point of Care 96 mg/dl (70-99)
--- NOTE | 2024-04-10 15:43 | CM ---
Patient with Hx dementia with Dx Acute hypoxic resp failure due to aspiration pneumonitis, Hypomagnesemia, ROSANNA, Paroxysmal Atrial Fibrillation, Concern for hypoglycemia HOLE FILLER. O2 15L --> 8L midflow today. Receiving IV Abx. PT & OT; requires assist
of two, recommend skilled rehab.
Met with patient who resides with her in a 2 story house with 1 PAPO.
The patient has been independent in ADLs and ambulates with her RW.
She is able to do the stairs to 2nd floor bedroom with walking behind her.
The patient denies any falls at home recently.
DME - RW, [facility], w/c, [employer]
Prior VN - can't remember, chart says [facility]
Prior SNF - remembers [facility], chart also says [facility]
PCP - [facility]
Pharmacy - [facility], [place]
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
Discussed short term SNF for rehab. Patient initially agreed and chose [facility] however thought that was an outpatient therapy place. She says she wants to go home at discharge. She agrees to discuss with her .
Phone call to [facility]; left message requested callback for d/c planning.
Plan follow up with re; SNF for rehab, vs home with VN and caregiver.
[2024-04-10 16:49] LABS: Glucose - Point of Care 297 mg/dl (70-99)
[2024-04-10] MEDS: LOVENOX 30 MG SC (17:55)
[2024-04-10] MEDS: NOVOLOG FLEXPEN-LOW RESISTANCE 3 UNITS SC (17:56)
[2024-04-10 21:44] LABS: Glucose - Point of Care 346 mg/dl (70-99)
[2024-04-10] MEDS: NOVOLOG FLEXPEN 5 UNITS SC (23:01)
[2024-04-11] VITALS (68 sets, daily range): BP systolic 67–156; BP diastolic 40–144; BMI 17.0
[2024-04-11 00:23] LABS: Glucose - Point of Care 309 mg/dl (70-99)
[2024-04-11 01:15] LABS: Glucose - Point of Care 261 mg/dl (70-99)
[2024-04-11] MEDS: ZOSYN 50 IV ×4 (03:39→20:25)
[2024-04-11 05:55] LABS: % Basophils 0.9 % (0-2); % Eosinophils 0.9 % (0-6); % Immature Granulocytes 0.7 % (0-0.5); % Lymphocytes 6.9 % (20.5-51.1); % Neutrophils 85.6 % (42.2-75.2); Absolute Basophils 0.1 10^3/uL (0-0.2); Absolute Eosinophils 0.1 10^3/uL (0-0.7); Absolute Immature Granulocytes 0.1 10^3/uL (0-0.05); Absolute Lymphocytes 0.7 10^3/uL (1.2-3.4); Absolute Monocytes 0.5 10^3/uL (0.1-0.6); Absolute Neutrophils 8.5 10^3/uL (1.4-6.5); Hematocrit 36.3 % (37.0-47.0); Mean Corp Hgb Conc. 33.1 g/dL (33.0-37.0); Mean Corpuscular Hgb 29.6 pg (27.0-31.0); Mean Corpuscular Volume 89.4 fL (81.0-99.0); Mean Platelet Volume 10.6 fL (7.4-10.4); Nucleated Red Blood Cells % 0 %; Platelet Count 205 10^3/uL (130-400); Red Blood Cell Count 4.06 10^6/uL (4.20-5.40); Red Cell Dist. Width 13.8 % (11.5-14.5)
[2024-04-11 06:21] LABS: Blood Urea Nitrogen 25 mg/dl (7-17); Calcium 8.2 mg/dl (8.4-10.2); Carbon Dioxide 20 mmol/L (22-30); Chloride 104 mmol/L (98-107); Estimated Creatinine Clearance 47 ml/min; Glucose 269 mg/dl (70-99); Magnesium 1.9 mg/dl (1.6-2.3); Potassium 3.8 mmol/L (3.5-5.1); Sodium 134 mmol/L (135-145); eGFR > 60.00
[2024-04-11] MEDS: LOPRESSOR 5 MG IV ×2 (06:26→22:43)
[2024-04-11] MEDS: NOVOLOG FLEXPEN-LOW RESISTANCE 4 UNITS SC (06:47)
[2024-04-11 06:54] LABS: Glucose - Point of Care 306 mg/dl (70-99)
[2024-04-11] MEDS: CARDIZEM 10 MG IV (07:01)
--- NOTE | 2024-04-11 07:07 | PTCARENOTE ---
at 06:24 pt went into Rapid AFib 150s-180s on monitor. Administered PRN 5 mg IV lopressor per order. Notified DISHWASHER BUSSER. EKG obtained. SBP in the 130s and dropped to 90s. Cardizem bolus still ordered and administered per DISHWASHER BUSSER. Glucose 309. 4 units
SSI given.
[2024-04-11 07:59] LABS: Glucose - Point of Care 288 mg/dl (70-99)
[2024-04-11] MEDS: LANOXIN 250 MCG IV (08:17)
--- NOTE | 2024-04-11 08:18 | W.PN.INTV ---
Today's Communication / Plan
Recommendations
IV fluid bolus
Check chest x-ray, blood sugars, electrolytes
Digoxin has been ordered. Patient received 1 bolus of Cardizem
Cardiology has been consulted
Check echo
May require cardioversion
Transferred to ICU noted
Assessment
-
73-year-old female with history of diabetes, noncompliance, history of DKA, paroxysmal atrial fibrillation, questionable dementia who presents with acute respiratory insufficiency, hypoxia, suspected aspiration. Patient required high flow oxygen in
the field. We are asked to help from pulmonary standpoint
Suspected acute aspiration
Bibasilar infiltrate
Acute hypoxic respiratory insufficiency requiring high flow oxygen
80% saturation
Insulin-dependent diabetes
Noncompliant
History of DKA 2021, history of frequent hypoglycemia according to patient
Leukocytosis
Elevated lactate
Atrial fibrillation with RVR
Conditions present prior to admission
Paroxysmal atrial fibrillation, not on anticoagulation
History of fall with left femur fracture, ORIF 2021
Dementia
[id number] history of smoking, quit 1999
Plan/recommendations
At this time, patient appears to be comfortable. She is not in respiratory distress.
Oxygen has been weaned down off high flow over the last 24 hours
Patient currently lying flat without difficulty
Heart rate 158, systolic pressure 81, MAP 60
proBNP 1280 on admission
ECHO from 2020 with preserved function
Moving forward
We will give dose of IV fluids, normal saline
Patient had been loaded with Cardizem, with subsequent hypotension
Digoxin has been ordered by primary service
Cardiology has been consulted
Check chest x-ray
Follow electrolytes. Creatinine improved from 1.1-0.8
Check blood sugars, coags
Hemoglobin stable
Check echocardiogram
Maintain n.p.o. for now given possible need for cardioversion
Continue Zosyn therapy for now
On admission, Elevated lactate, trending down
No indication for BiPAP at this time
Head of bed elevated, aspiration precautions
Follow oxygen requirement
DVT prophylaxis: Remains on Lovenox
Reviewed with nursing, primary service
Would consider addressing CODE STATUS
patient for transfer to ICU
TCCT 31 min
Diagnostic Data
CXR 04/08/24- Mild to moderate pulmonary edema. Small left pleural effusion and bibasilar probable atelectasis.
11/08/21- No radiographic evidence of acute cardiopulmonary abnormality.
ECHO 05/29/21- Normal left ventricular size, wall thickness and systolic function. No regional wall motion abnormalities are seen. LV ejection fraction is 65-70% by visual assessment. Trace tricuspid regurgitation. No significant valvular disease.
Compared to previous echo from August 05, 2015, there is no significant change.
Subjective Dataa
Subjective Data
Date of Service:
Date of Service: April 11, 2024
Subjective:
Asked to see patient by hospitalist for tachycardia, A-fib with RVR, hypotension. Patient developed atrial fibrillation with RVR overnight, EKG with nonspecific changes. Received 1 dose of Lopressor earlier, blood pressure decreased to 80s over
50s. Patient is feeling 'crappy', but in no distress. She is lying flat. She denies chest pain, shortness of breath. She denies nausea. Dementia is noted
Objective Data
Data Reviewed
Vital Signs / I&O / Oxygen:
Vital Signs
Temp Pulse Resp BP Pulse Ox
98.5 F 158 24 80/55 94
04/11/24 03:19 04/11/24 08:17 04/11/24 07:10 04/11/24 07:10 04/11/24 07:10
Intake and Output
04/10/24 04/11/24 04/12/24
06:59 06:59 06:59
Intake Total 870 / 870 1720 / 1720
Output Total 150 / 150 510 / 510
Balance 720 / 720 1210 / 1210
SaO2 94
Nasal Cannula flow liters per 8
minute
Physical Exam
General: Comfortable
HEENT: Normocephalic and Anicteric
Cardiovascular: S1-S2, Irregular Rhythm (Tachycardia) and Murmur (n)
Respiratory: Wheeze (n), Crackles (Few at base), Rhonchi (n) and Non-Labored Respirations
GI: Soft, Non Distended and Non Tender
Neurology: Awake and Alert (Dementia)
Skin: Good Color (n), Cyanosis (n) and Rash
Labs/Micro/Reports
Lab Data
04/11/24 05:32
04/11/24 05:32
Microbiology
04/08/24 07:45 Blood/Venous Blood Culture - Preliminary
No Growth in 72 hours- Final report to follow
04/08/24 07:28 Blood/Venous Blood Culture - Preliminary
No Growth in 72 hours- Final report to follow
04/08/24 16:47 Nose MRSA Screen - Final
No Methicillin Resistant Staphylococcus aureus isolated.
--- NOTE | 2024-04-11 08:26 | W.PN.HOSP.TC ---
Today's Communication/Plan
-
wean o2, continue abbx
manage afib rvr, started dig and ivf, consult cards and upgrade to icu
Assessment / Plan
Assessment / Plan
HPI: 73-year-old female PMH IDDM, Paroxysmal Atrial Fibrillation (not on OAC), Left Femur Fracture s/p ORIF, who was found unresponsive with low BG (45) by her and was given soda and sugar which resulted in respiratory distress. Her MS
improved with improved BS, however she developed SOB. She was unable to tolerate CPAP by EMS, hence was placed on high flow nasal cannula.
Patient remained hypoxic and was placed on BiPAP in the ED, which was then changed to high flow NC at 80%.
Patient is awake, but is a poor historian due to likely underlying cognitive impairment. She is NOT orientated to time (cannot recall which month/year we are in).
Collateral history obtained from on the phone.
A/P:
#New Acute issue
#PAFIB with RVR
monitor on tele
potential trigger - pneumonitis/infection vs hypovolemia in the setting of receiving iv diuretics
provide fluid bolus
give IV Dig if hemodynamically unstable but mentating well or without sob/cp
if becomes altered then/sob/cp, then will need to cardiovert
if hemodynamically stable, mentating well can trial ccb iv bolus dose follow up gtt if bp tolerates
check 2d echo to determine ef and valves/wma
check tsh
consider infectious workup with bcx/scx, as she is coughing up thick madison sputum (but this is likely from clearing pneumonitis
cardiology notified via [facility]
-will need to discuss with cardiology starting hep gtt
icu notified via [facility]
not on rate controlling med or anticoagulation (Eliquis was taken off by PCP per )
# Acute hypoxic resp failure due to aspiration pneumonitis from given soda and sugar during unresponsive episode
now on 8l, conitnue to wean o2 as toelrated, maintain goal spo2 >92%
hold on any furth diuretic use
procal negative
check sputum culture
covid test neagtive
she is being covered with zosyn that would also cover for aspiration.
pulm following
# Hypomagnesemia
maintain >2, replete prn
# ROSANNA likely due to IV Lasix
resolved
# IDDM
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
A1C 8.9%
resumes Lantus low dose at 5 units daily (PARISH NURSE 13 units daily)
- uncontrolled as started pureed diet, will increase to 10u
goal bg 140-180 while inpatient, ccdiet, accuchecks
SSI coverage.
# Clinical deconditioning per
Pt has not been out of room much
PT OT recc SNF
# Subjective back pain
check thoracic/lumbar XR when able
resolved, likely muscle strain
# Dementia, unknown type
Pt is awake but not orientated. This appears to be her baseline MS per
DVT Prophylaxis: Lovenox SQ
Code Status: Full
Anticipated Discharge: > 48 hours
Subjective/Interval History
-
Date of Service: April 11, 2024
seen and examined
was notified by nursing that she was in afib rvr this am with rates into the 170-180's
-bp in 80's, mentating well though
fluid bolus provided
-cardiology and icu notified.
while at bedside, she is mentating well, does not feel like her heart is going fast.
no numbness, tingling, loss of sensation
does endorse think madison cough
no chest pain
currently on 8l and off of high flow
case discussed at bedside with nurse
currently on pureed diet after cleared by speech
back pain resolved
Objective Data
-
Labs:
Laboratory Results
04/11/24
05:32
WBC 10.0
Hgb 12.0
Hct 36.3 L
Plt Count 205
Sodium 134 L
Potassium 3.8
Chloride 104
Carbon Dioxide 20 L
BUN 25 H
Creatinine 0.8
Glucose 269 H
Calcium 8.2 L
Vital Signs:
Vital Signs
Temp Pulse Resp BP Pulse Ox
98.5 F 158 24 80/55 94
04/11/24 03:19 04/11/24 08:17 04/11/24 07:10 04/11/24 07:10 04/11/24 07:10
I&O
04/10/24 04/11/24 04/12/24
06:59 06:59 06:59
Intake Total 870 / 870 1720 / 1720
Output Total 150 / 150 510 / 510
Balance 720 / 720 1210 / 1210
Ekg
Afib rvr at rate in the 150's
Tele
Afib with a rate in the 160's
MAP while bedside
66
Review of Systems
-
Unable to obtain full review of systems at this time due to: Acuity (critical, afib rvr with borderline bp)
History Source: Patient and Records
All other systems: Reviewed and negative
Constitutional: Reports No Symptoms
EENT: Reports No Symptoms Reported
Respiratory: Reports Cough
Cardiac: Reports No Symptoms
Abdomen/GI: Reports No Symptoms
Genitourinary: Reports No Symptoms
Musculoskeletal: Reports No Symptoms (back pain resolved )
Skin: Reports No Symptoms
Neuro: Reports No Symptoms
Endocrine: Reports No Symptoms
Hematologic / Lymphatic: Reports No Symptoms
Physical Exam
-
General: No Apparent Distress, Conversant and Cachectic
HEENT: Normocephalic (DMM), Atraumatic and Oxygen (8l)
Respiratory: Rhonchi (bibasilar)
Cardiac: Irregular Rhythm and Tachycardic
GI: Soft, Nontender and Nondistended
Musculoskeletal: No Clubbing, No Cyanosis and No Edema
Skin: Warm, Dry and IV Access / Catheter Site
Neuro: Awake, Alert, Oriented, No Motor Deficits and Nonfocal/Grossly Intact
Psych: Calm
Data Reviewed
-
Diagnostic Radiology: Image personally visualized and interpreted
CT Scan: Image personally visualized and interpreted
Medical Tests (Nuc Med, Echo etc): Image personally visualized and interpreted
Labs: Labs Reviewed by me
[2024-04-11] MEDS: NSS 500 IV (08:27)
--- NOTE | 2024-04-11 08:35 | CON.CAR ---
Addendum entered and electronically signed by Bruce Ibrahim MD 04/11/24 10:47:
I saw and examined the patient.
The Hand I Thermal Cutter's note was reviewed and I agree with the note.
Comment: Briefly, 73-year-old woman past medical history of paroxysmal atrial fibrillation who presents following an episode of unresponsiveness likely due to hypoglycemia which was complicated by aspiration pneumonia. She is currently admitted in
the IMU and being treated with supplemental oxygen.
Unfortunately developed atrial fibrillation with rapid ventricular response this morning and subsequently narrow complex regular short R-P tachycardia (suspect AVRNT vs Atach) for which cardiology is consulted
Received beta-julius, calcium channel julius and digoxin this morning
Unfortunately blood pressures are marginal and therefore she is unlikely to tolerate higher doses of beta-julius or calcium channel julius
Will start low-dose Lopressor 12.5 mg twice daily and monitor on telemetry
If SVT recurs would consider adenosine
Known history of AFib not on OAC, will ask CM to miguelito Howe
Original Note:
Consultation
Consultation Request
Date/Time Consultation Requested: 04/11/2024
Date/Time Consultation Performed: 04/11/2024
Requesting Provider: Dr. Akash Barraza
Performing Provider: Dr. Ibrahim
Reason for Consultation: Rapid Afib
Medical History
-
History of Present Illness:
HPI: Ale is a 73 year old female with PMH of SVT, paroxysmal atrial fibrillation, DM2, and HTN who presented to [facility] for evaluation after she had an unresponsive episode at home. Reportedly she became unresponsive and there was concern that she
was hypoglycemic and her gave her sugar and soda. There is concern she may have aspirated during this time. She was brought to and placed on high flow oxygen. She has also been on IV abx. In AM 7, patient went into rapid atrial
fibrillation. She was given a bolus of cardizem and BPs dropped, however HRs have persistently been in the 150s. She has history of atrial fibrillation as well as SVT in 2020. She is not maintained on anticoagulation and is not on any rate control
medications as OP. Unclear if she has been having episodes of atrial fibrillation at home as she appears to be asymptomatic with her tachycardia. Despite HR 154 and BP as low as 76/54, she feel well and is without any complaints currently. Due to
persistent tachycardia with hypotension, she was given IVF bolus as well as 250 mcg of digoxin.
PMH:
SVT
s/p Adenosine 6 mg IV x1 with conversion to SR 05/29/21
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
Paroxysmal Afib
Not chronically anticoagulated
DM 2 on insulin
HTN
Former smoker
Past Medical History
Past Medical History: Other (In HPI)
Past Surgical History: Other (benign breast tumor resections)
Social History
Tobacco: Former Smoker
Alcohol: None
Drug: None
Personal:
Living: With Family
Family History
Family History: Reviewed & Not Pertinent
Allergies / Home Medications
Allergy/AdvReac Type Severity Reaction Status Date / Time
No Known Allergies Allergy Unverified 04/08/24 07:39
�Medication �Instructions �Recorded �Confirmed �Type
insulin aspart U-100 100 unit/mL 0 sliding scale dose SC AC Diabetes 04/08/24 04/08/24 History
(3 mL) subcutaneous pen (Novolog
FlexPen U-100 Insulin aspart)
insulin glargine 100 unit/mL (3 13 unit SC DAILY Diabetes 04/08/24 04/08/24 History
mL) subcutaneous pen (Lantus
Solostar U-100 Insulin)
losartan 25 mg tablet 25 mg PO DAILY Blood Pressure 04/08/24 04/08/24 History
metformin 500 mg tablet 500 mg PO DAILY Diabetes 04/08/24 04/08/24 History
vit C 333.3 mg-olive leaf extract 1 cap PO DAILY Supplement 04/08/24 04/08/24 History
333.3 co-nafd-azufbx 83.3 mg
capsule ([employer]e Essentials)
Review of Systems
-
History Source: Patient
All other systems: Negative unless noted
Physical Exam
Vital Signs
Temp Pulse Resp BP Pulse Ox
98.5 F 158 24 80/55 94
04/11/24 03:19 04/11/24 08:17 04/11/24 07:10 04/11/24 07:10 04/11/24 07:10
Lab Results
04/11/24 05:32
04/11/24 05:32
Troponin I < 0.012 ng/ml 04/08/24 07:28
Ffw-N-Wzlinxnhfdc Pept 5290 pg/ml 04/09/24 05:49
Physical Exam
General: Well Developed, Well Nourished and No Apparent Distress
HEENT: Normocephalic, Anicteric and Moist Mucous Membranes
Respiratory: Clear and Non Labored Respirations
Cardiac: S1/S2 and Regular Rhythm
Musculoskeletal: No Clubbing, No Cyanosis and No Edema
Skin: Warm and Dry
Neuro: Nonfocal/Grossly Intact
Psych: Calm
Impression / Plan
-
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 MARIA FERNANDA Hinton, last seen in 2020 and lost to follow up
Impression:
Presented with hypoxia
Aspiration pneumonitis
SVT
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
Paroxysmal Afib
Not chronically anticoagulated
DM 2 on insulin
HTN
Former smoker
Echo 05/29/2021: EF 65-70%, no significant valvular disease
Echo 04/11/2024: Study pending
Plan:
-Presented after unresponsive episode, suspected hypoglycemia. gave patient soda and sugar and there is concern for aspiration.
-Continue abx per pulmonology.
-In AM 04/11, patient went into rapid atrial fibrillation. HR sustaining 150s.
-s/p IV cardizem 10mg x1 w/ subsequent hypotension. Given 500cc IVF bolus. HR remained elevated and given dose of 250 mcg digoxin.
-Despite tachycardia and hypotension, patient appears well and has no complaints.
-Patient does have history of AVNRT requiring adenosine in the past. Will trial dose of adenosine 6mg x1.
-Also patient does have history of atrial fibrillation, however has not been chronically anticoagulated by patient choice.
-Check echo. Prior echo in 2020 with preserved EF.
-ProBNP elevated at 5290 04/09. No edema. Did recieve IV lasix 20mg 04/08 and 04/09.
-Remains on 8L NC. Wean as able.
-K and mag stable. Check TSH.
HPI: Ale is a 73 year old female with PMH of SVT, paroxysmal atrial fibrillation, DM2, and HTN who presented to [facility] for evaluation after she had an unresponsive episode at home. Reportedly she became unresponsive and there was concern that she
was hypoglycemic and her gave her sugar and soda. There is concern she may have aspirated during this time. She was brought to and placed on high flow oxygen. She has also been on IV abx. In AM 7, patient went into rapid atrial
fibrillation. She was given a bolus of cardizem and BPs dropped, however HRs have persistently been in the 150s. She has history of atrial fibrillation as well as SVT in 2020. She is not maintained on anticoagulation and is not on any rate control
medications as OP. Unclear if she has been having episodes of atrial fibrillation at home as she appears to be asymptomatic with her tachycardia. Despite HR 154 and BP as low as 76/54, she feel well and is without any complaints currently. Due to
persistent tachycardia with hypotension, she was given IVF bolus as well as 250 mcg of digoxin.
Data Reviewed
-
EKG: Tracing Personally Visualized and interpreted
Radiology: Report Reviewed by me
Labs: Labs Reviewed by me
Old Records: Reviewed
--- NOTE | 2024-04-11 08:57 | PTCARENOTE ---
Assumed care of pt from night RN, pt had flipped into rapid a-fib this morning. HR in 150-180s, BP soft SBP 70s-80s. Digoxin 250mcg administered along with 500ml NSS bolus. Pt mentating at baseline.
[2024-04-11] MEDS: NSS 1000 IV (09:25)
[2024-04-11] MEDS: LANTUS 0.03 UNITS SC (09:26)
--- NOTE | 2024-04-11 09:41 | PTCARENOTE ---
Pt HR continues in the 160s, last BP at 0940 104/76, mentation at baseline. Pt verbalizes that she is hungry, currently eating breakfast. Lantus administered as ordered. Pt continues on O2 at 8L, maintaining SPO2 >94%. Pt pending transfer to ICU at
this time. Will continue to monitor closely through shift.
--- NOTE | 2024-04-11 10:40 | PTCARENOTE ---
Pt converted back into NSR, HR 80-90 at this time. BP 118/68. Pt to stay IMU status. Cards and Dr. Barraza aware. Will continue to monitor closely through shift.
--- NOTE | 2024-04-11 12:15 | CM ---
Addendum entered by Liss Goss 04/11/24 17:40:
Wide net of SNF referrals sent via [facility]. PASSR completed.
Addendum entered by Hailey Krause 04/11/24 16:02:
CM reviewed with nursing and to remain in IMU
Bedside dc planning meeting with pt and spouse
PAC list provided and SNF recs reviewed
In agreement with SNF placement- aware of limited SNFs that accept [employer]
Wide net of referrals sent via [facility] and pending
Spouse notes poor experience at [facility]
[place] [employer] info provided as spouse with questions regarding insurance counseling and switching insurance plans
Also explained role of OAMARY and carlozman as spouse noted poor experience and care concerns at prior SNFs
Discharge Disposition- SNF pending [employer] auth
Original Note:
CM reviewed chart- plan to tx to ICU from IMU
SNF recommended by therapy last week
CM will continue to follow for dc planning and further therapy recommendations
CM consult for med pricing
Call with [employer] for Eliquis 5mg BID
Pricing sent to cardio/TT
Pt has $150 deductible to meet
Month one- $197/30 days retail
After deductible, $47/30 days retail or $131/90 days mail order
If SNF on dc, will need [employer] auth
Discharge Disposition- anticipate SNF
[2024-04-11 12:16] LABS: Free T4 0.66 ng/dl (0.78-2.19)
[2024-04-11 12:24] LABS: Glucose - Point of Care 281 mg/dl (70-99)
[2024-04-11] MEDS: LOPRESSOR 12.5 MG PO ×2 (12:43→20:25)
[2024-04-11] MEDS: NOVOLIN N vial 0.06 UNITS SC (12:44)
[2024-04-11] MEDS: NOVOLOG FLEXPEN-MODERATE RESISTANCE 5 UNITS SC (12:44)
--- NOTE | 2024-04-11 15:58 | PTOTSP ---
Dysphagia Therapy
Patient with signs oral/pharyngeal dysphagia today felt to be related to lack of dentures (edentulous) and attention to task/behaviors.
Patient reported baseline diet as regular solids with meats chopped into chunks and moistened with gravy. She stated dislike of current pureed diet and likened it to 'dog food.' Given concern that patient would not eat food if minced/moist,
recommended soft/bite sized solids. If patient with significantly prolonged mastication resulting in reduced meal completion or signs of aspiration - downgrade diet.
Recommendations:
1. IDDSI Level 6 Soft/Bite Sized, IDDSI Level 0 Thin
2. FULL assistance and supervision with PO
3. PO only when alert
4. PO only when Sp02 is >90% and RR<30
5. Medications as tolerated
[2024-04-11 16:42] LABS: Glucose - Point of Care 228 mg/dl (70-99)
[2024-04-11] MEDS: NOVOLOG FLEXPEN-MODERATE RESISTANCE 3 UNITS SC (18:01)
[2024-04-11] MEDS: LOVENOX 30 MG SC (18:02)
--- NOTE | 2024-04-11 18:56 | PTCARENOTE ---
Pt briefly flipped back into afib w/ rvr, was able to break it with vagal. Cariology and Dr. Barraza notified. Will report off to night RN.
[2024-04-11 21:37] LABS: Glucose - Point of Care 161 mg/dl (70-99)
[2024-04-11] MEDS: LANTUS 0.1 UNITS SC (22:53)
--- NOTE | 2024-04-11 22:55 | PTCARENOTE ---
Receive pt at change of shift. Pt was in NSR, HR in the 80s. Pt HR went into the 140s sustained. Administered PRN 5mg IV Lopressor. Pt now back in NSR in the 60s. BP 106/75. Only complaint pt offers is feeling 'worried'. No c/o SOB. 100% on
8L MF. Resting in bed with call ramirez in reach.
[2024-04-12] VITALS (28 sets, daily range): BP systolic 100–176; BP diastolic 62–135; PULSE 74
[2024-04-12] MEDS: LOPRESSOR 5 MG IV ×2 (03:00→09:39)
[2024-04-12] MEDS: ZOSYN 50 IV ×3 (03:00→13:22)
--- NOTE | 2024-04-12 03:06 | PTCARENOTE ---
2nd dose of IV Lopressor given (see MAR). Pt HR in 140s-150s sustaining for 30 minutes. Pt back to NSR with rate in the 60s. BP 107/80. Pt offers no complaints at this time.
[2024-04-12 07:40] LABS: Glucose - Point of Care 107 mg/dl (70-99)
[2024-04-12] MEDS: LOPRESSOR 12.5 MG PO (07:45)
[2024-04-12] MEDS: NOVOLOG FLEXPEN-MODERATE RESISTANCE SC (08:55)
--- NOTE | 2024-04-12 09:18 | W.PN.CARDCBS ---
Addendum entered and electronically signed by Bruce Ibrahim MD 04/12/24 13:16:
Suspected acute on chronic heart failure with preserved ejection fraction
Original Note:
Today's Communication / Plan
-
Continue low-dose metoprolol for rate control of atrial fibrillation and AVNRT
Start Eliquis for cardioembolic prophylaxis
Impression / Plan
-
Dramatic Reader: Dr. MARIA FERNANDA Hinton, last seen in 2020 and lost to follow up
Impression:
Presented with hypoxia
Aspiration pneumonitis
SVT
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
Paroxysmal Afib
Not chronically anticoagulated
DM 2 on insulin
HTN
Former smoker
Echo 05/29/2021: EF 65-70%, no significant valvular disease
Echo 04/11/2024: EF 60-65%, no significant valvular disease, small pericardial effusion
Plan:
-Presented after unresponsive episode, suspected hypoglycemia. gave patient soda and sugar and there is concern for aspiration. Remains on 6L NC. Abx per pulmonology.
-On 04/11 patient went into rapid atrial fibrillation and subsequently a regular narrow complex tachycardia, suspect AVRNT
-Currently maintaining NSR
-Continue low dose metoprolol for rate control
-[id number] score of at least 5 (HTN, age, DM2, sex), recommended OAC, will ask CM to [place]
-TTE with preserved LVEF
-ProBNP elevated at 5290
-Did recieve IV lasix 20mg 04/08 and 04/09.
-Not overtly volume overloaded on exam, would hold off on further lasix dosing
HPI: Ale is a 73 year old female with PMH of SVT, paroxysmal atrial fibrillation, DM2, and HTN who presented to [facility] for evaluation after she had an unresponsive episode at home. Reportedly she became unresponsive and there was concern that she
was hypoglycemic and her gave her sugar and soda. There is concern she may have aspirated during this time. She was brought to and placed on high flow oxygen. She has also been on IV abx. In AM 04/11, patient went into rapid atrial
fibrillation. She was given a bolus of cardizem and BPs dropped, however HRs have persistently been in the 150s. She has history of atrial fibrillation as well as SVT in 2020. She is not maintained on anticoagulation and is not on any rate control
medications as OP. Unclear if she has been having episodes of atrial fibrillation at home as she appears to be asymptomatic with her tachycardia. Despite HR 154 and BP as low as 76/54, she feel well and is without any complaints currently. Due to
persistent tachycardia with hypotension, she was given IVF bolus as well as 250 mcg of digoxin.
Progress Note - Dramatic Reader
Subjective
Date of Service: April 12, 2024
No acute overnight events. Resting comfortably in bed this morning eating breakfast. Brief episode of SVT overnight but otherwise maintaining sinus rhythm.
Objective
Labs:
04/11/24 05:32
04/11/24 05:32
Labs
Hgb 12.0 g/dL (12.0-16.0) 04/11/24 05:32
Hct 36.3 % (37.0-47.0) L 04/11/24 05:32
Plt Count 205 10^3/uL (130-400) 04/11/24 05:32
Sodium 134 mmol/L (135-145) L 04/11/24 05:32
Potassium 3.8 mmol/L (3.5-5.1) 04/11/24 05:32
BUN 25 mg/dl (7-17) H 04/11/24 05:32
Creatinine 0.8 mg/dL (0.6-1.0) 04/11/24 05:32
Glucose 269 mg/dl (70-99) H 04/11/24 05:32
Vital Signs and I&O:
Vital Signs
Temp Pulse Resp BP Pulse Ox
98.0 F 66 22 162/86 100
04/12/24 07:05 04/12/24 07:45 04/12/24 03:00 04/12/24 07:45 04/12/24 03:09
Vital Signs
Temp Pulse Resp BP Pulse Ox
98.0 F 66 22 162/86 100
04/12/24 07:05 04/12/24 07:45 04/12/24 03:00 04/12/24 07:45 04/12/24 03:09
Intake & Output
04/10/24 04/11/24 04/12/24 04/13/24
06:59 06:59 06:59 06:59
Intake Total 870 / 870 1720 / 1720 1490 / 1490
Output Total 150 / 150 510 / 510
Balance 720 / 720 1210 / 1210 1490 / 1490
Physical Exam
Physical Exam
Gen: NAD, AA
HEENT: NC/AT, sclera anicteric
Neck: No JVD
CV: RRR, NL s1/s2
Lungs: No increased WOB on 6L NC
Abd: S/ND
Ext: No LE edema
Skin: Warm, dry
Neuro: Non-focal
[2024-04-12] MEDS: ELIQUIS 5 MG PO ×2 (10:41→20:27)
--- NOTE | 2024-04-12 10:50 | PN.CDI ---
CDI
- -
CDI:
Physician Documentation Request
Admit Date: 04/08/24 09:38
Dear Doctor,
Please review the following and provide your response in the progress notes.
Clinical Indicators:
Pt admitted with aspiration pneumonia / Acute Hypoxic Respiratory Failure
Documented per progress notes 04/09 & 04/10, ' CXR noted Mild to moderate pulmonary edema...lasix 20 mg x2 doses ....'
Cardiology progress note 04/12,'Echo 04/11/2024: EF 60-65%... TTE with preserved LVEF ProBNP elevated at 5290 Did receive IV Lasix 20mg 04/08 and 04/09. Not overtly volume overloaded on exam, would hold off on further Lasix dosing...'
CXR 04/11, ' Redemonstration of findings suspicious for mild to moderate pulmonary edema...'
Please provide a diagnosis for the above findings/treatment of IV Lasix:
Acute Noncardiogenic Pulmonary Edema
Acute Diastolic CHF
Other ( Please specify )
Use of terms such as suspected, likely, concern for, or probable (associated with a specific diagnosis that is being evaluated, monitored, or treated as if it exists) are acceptable and can be coded in the inpatient setting, when documented at the
time of discharge.
Thank you,
Cyn Trujillo RN
CDI Specialist
[place] [facility]
Please use your independent medical judgment in providing your response.
--- NOTE | 2024-04-12 11:01 | PN.CDI ---
CDI
- -
CDI:
Physician Documentation Request
Admit Date: 04/08/24 09:38
Dear Doctor Madi,
Please review the following and provide your response in the progress notes.
Clinical Indicators:
Pt admitted with aspiration pneumonia / Acute Hypoxic Respiratory Failure
On Admission Temp 95.1, HR 114, RR 37,WBC 13.3
Pt on IV Zosyn
Please clarify which of the following most accurately describes the status of the patient's infection:
Sepsis-POA
- Systemic manifestations of infection, with 2 or more SIRS criteria which include:
- Fever >100.4 degrees F or hypothermia < 96.8 degrees F
- Leukocytosis - WBC > 12,000 or leukopenia - WBC < 4,000 or > 10% bands
- Tachycardia > 90 beats per minute
- Tachypnea - RR > 20 breaths per minute or PaCO2 , 32mmHg
Source: Merck Manual 2013
Aspiration Pneumonia only , Without Systemic Illness
Other (Please Specify)
Use of terms such as suspected, likely, concern for, or probable (associated with a specific diagnosis that is being evaluated, monitored, or treated as if it exists) are acceptable and can be coded in the inpatient setting, when documented at the
time of discharge.
Thank you,
Cyn Trujillo RN
CDI Specialist
[place] [facility]
Please use your independent medical judgment in providing your response.
--- NOTE | 2024-04-12 11:17 | PN.CDI ---
CDI
- -
CDI:
Physician Documentation Request
Admit Date: 04/08/24 09:38
Dear Doctor Madi,
Please review the following and provide your response in the progress notes.
Clinical Indicators:
Pt admitted with aspiration pneumonia / Acute Hypoxic Respiratory Failure
Trended Lactic Acid Labs below / Pt did get IVFs
04/08/24 04/08/24 04/08/24
07: 12:02 17:03
Lactic Acid 4.9 H* 3.8 H 3.5 H
04/08/24
21:19
Lactic Acid 4.4 H*
Based on the above, could you clarify in the progress notes, the appropriate diagnosis, if significant, that supports the above abnormalities and additional evaluation, monitoring and/or treatment rendered:
Lactic Acidosis
Abnormal lab value only
Other
Use of terms such as suspected, likely, concern for, or probable (associated with a specific diagnosis that is being evaluated, monitored, or treated as if it exists) are acceptable and can be coded in the inpatient setting, when documented at the
time of discharge.
Thank you,
Cyn Trujillo RN
CDI Specialist
[place] [facility]
Please use your independent medical judgment in providing your response.
--- NOTE | 2024-04-12 11:39 | PTCARENOTE ---
Rec'd pt this AM. PT had extended episodes of SVT x2. IV lopressor PRN given. HR improved but a second episode followed. Self limited, captured on EKG as SVT. BP was hypertensive this AM now 110/86. Updated MD and Rig Builder,
--- NOTE | 2024-04-12 12:31 | W.PN.PUL3 ---
Today's Communication / Plan
-
Improving O2 requirements but still requiring midflow nasal cannula
Keep SpO2 >90-94%
Aspiration precautions
Defer diet to MONUMENT INSTALLER
Continue with antibiotics and will complete at least 7 days
Repeat CXR tomorrow, trend BNP and Pro-Nitin
OOB/IS
PT/OT - rec'd subacute rehab on discharge
Pulmonary service will continue to follow along
Assessment
-
73-year-old female with history of diabetes, noncompliance, history of DKA, paroxysmal atrial fibrillation, questionable dementia who presents with acute respiratory insufficiency, hypoxia, suspected aspiration. Patient required high flow oxygen in
the field. We are asked to help from pulmonary standpoint
Impression:
#Acute respiratory failure with hypoxia � likely due to acute HFpEF exacerbation in the setting of aspiration
Suspected acute aspiration
Bibasilar infiltrate
Acute hypoxic respiratory insufficiency requiring high flow oxygen
80% saturation
Insulin-dependent diabetes
Noncompliant
History of DKA 2021, history of frequent hypoglycemia according to patient
Leukocytosis
Elevated lactate
Sinus tachycardia
Conditions present prior to admission
Paroxysmal atrial fibrillation, not on anticoagulation
History of fall with left femur fracture, ORIF 2021
Dementia
[id number] history of smoking, quit 1999 (no PFT or spirometry on file)
Plan/recommendations
At this time, patient appears to be comfortable. She is not in respiratory distress.
She remains on midflow NC from high flow NC
Chest exam with bibasilar crackles otherwise good air exchange.
ABG 04/08/24: 7.48///
proBNP 1280 --> 5290
ECHO from 2020 with preserved function
Trend BNP, re-check CXR tomorrow - try to keep net neutral to net negative, as tolerated now that Cr is improving
Defer diet to MONUMENT INSTALLER
Suspect this may have been an acute aspiration event
Presented while 'drinking sugar water' in the middle the night for hypoglycemia. Per records, patient developed gurgling and respiratory distress thereafter
Speech following, high risk
Continue Zosyn therapy for now to complete 7 days of ABx
Follow blood sugars. Anion gap presently 16. Follow given history of DKA
Elevated lactate, trending down
Trend procal to ensure source control
No indication for BiPAP at this time
Head of bed elevated, aspiration precautions
DVT prophylaxis: Started on Eliquis today
PT/OT -recommend skilled rehab
OOB
Pulmonary service will continue to follow him.
Total time spent today was 50 minutes for this encounter. Time includes reviewing laboratory test/imaging results, reviewing pertinent medical records, obtaining and reviewing medical history, performing an appropriate exam, ordering medications,
tests and procedures. Time also includes documentation of this encounter, coordinating patient care and communicating with other healthcare professionals. Total time does not include separately billed tests performed on this date of service.
Diagnostic Data
CXR 04/11/2024: Redemonstration of findings suspicious for mild to moderate pulmonary edema, not appreciable changed compared to the prior study.
CXR 04/08/24- Mild to moderate pulmonary edema. Small left pleural effusion and bibasilar probable atelectasis.
CXR 11/08/21- No radiographic evidence of acute cardiopulmonary abnormality.
ECHO 05/29/21- Normal left ventricular size, wall thickness and systolic function. No regional wall motion abnormalities are seen. LV ejection fraction is 65-70% by visual assessment. Trace tricuspid regurgitation. No significant valvular disease.
Compared to previous echo from August 05, 2015, there is no significant change.
Subjective Data
-
Date of Service:
Date of Service: April 12, 2024
Chief Complaint: Pulmonary Follow Up
Subjective:
Patient seen and evaluated today at bedside. She feels better, still has a cough with some phlegm production. Currently saturating 100% on 9 L/min via midflow nasal cannula, with BP 152/108 and heart rate 67. She denies chest pain, headache,
abdominal pain, fevers or chills.
Review of Systems
General: Other (Negative unless mentioned above)
Objective Data
Data Reviewed
Vital Signs / I&O / Oxygen:
Vital Signs
Temp Pulse Resp BP Pulse Ox
98.0 F 149 22 172/90 100
04/12/24 07:05 04/12/24 09:39 04/12/24 03:00 04/12/24 09:39 04/12/24 03:09
Intake and Output
04/11/24 04/12/24 04/13/24
06:59 06:59 06:59
Intake Total 1720 / 1720 1490 / 1490
Output Total 510 / 510
Balance 1210 / 1210 1490 / 1490
SaO2 100
Nasal Cannula flow liters per 8
minute
Physical Exam
General: Comfortable, Other (deconditioned) and Other (NAD, chronically ill appearing)
HEENT: Normocephalic, Anicteric and Moist Mucous Membranes
Cardiovascular: S1-S2 and Peripheral Edema (Negative)
Respiratory: Wheeze (Negative), Crackles (Bilaterally), Rhonchi (Bilaterally at the bases) and Non-Labored Respirations
GI: Soft, Non Distended and Non Tender
Neurology: AO x 3 and Tremors (Negative)
Skin: Warm, Dry and Good Color
Labs/Micro/Reports
Lab Data
04/11/24 05:32
04/11/24 05:32
Microbiology
04/08/24 07:45 Blood/Venous Blood Culture - Preliminary
No Growth in 4 days- Final report to follow
04/08/24 07:28 Blood/Venous Blood Culture - Preliminary
No Growth in 4 days- Final report to follow
04/08/24 16:47 Nose MRSA Screen - Final
No Methicillin Resistant Staphylococcus aureus isolated.
[2024-04-12] MEDS: NOVOLOG FLEXPEN-MODERATE RESISTANCE 3 UNITS SC (13:21)
[2024-04-12] MEDS: CARDIZEM CD 120 MG PO ×2 (13:22→20:27)
[2024-04-12 13:30] LABS: Glucose - Point of Care 206 mg/dl (70-99)
--- NOTE | 2024-04-12 13:41 | W.PN.HOSP.TC ---
Today's Communication/Plan
-
wean o2 as toelrated
prn bb iv
cotninue po bb, may need to increase dose if continues to go into svt with abrenncy, may need EP study for potential ablation
monitor on tele.
cxr in the AM
Assessment / Plan
Assessment / Plan
HPI: 73-year-old female PMH IDDM, Paroxysmal Atrial Fibrillation (not on OAC), Left Femur Fracture s/p ORIF, who was found unresponsive with low BG (45) by her and was given soda and sugar which resulted in respiratory distress. Her MS
improved with improved BS, however she developed SOB. She was unable to tolerate CPAP by EMS, hence was placed on high flow nasal cannula.
Patient remained hypoxic and was placed on BiPAP in the ED, which was then changed to high flow NC at 80%.
Patient is awake, but is a poor historian due to likely underlying cognitive impairment. She is NOT orientated to time (cannot recall which month/year we are in).
Collateral history obtained from on the phone.
General: No Apparent Distress, Conversant and Cachectic
HEENT: Normocephalic (DMM), Atraumatic and Oxygen (8l)
Respiratory: Rhonchi (bibasilar)
Cardiac: Irregular Rhythm and Tachycardic
GI: Soft, Nontender and Nondistended
Musculoskeletal: No Clubbing, No Cyanosis and No Edema
Skin: Warm, Dry and IV Access / Catheter Site
Neuro: Awake, Alert, Oriented, No Motor Deficits and Nonfocal/Grossly Intact
Psych: Calm
A/P:
#New Acute issue
#PAFIB with RVR/SVT with aberrancy (AVNRT)
monitor on tele
potential trigger - pneumonitis/infection vs hypovolemia in the setting of receiving iv diuretics
cards following
-continue bb
-continue ac
icu notified via [facility]
not on rate controlling med or anticoagulation (Eliquis was taken off by PCP per )
# Acute hypoxic resp failure due to aspiration pneumonitis from given soda and sugar during unresponsive episode
now on 8l, conitnue to wean o2 as toelrated, maintain goal spo2 >92%
hold on any furth diuretic use
procal negative
check sputum culture
covid test neagtive
she is being covered with zosyn that would also cover for aspiration.
pulm following
repeat cxr ordered for tomorrow am
# Hypomagnesemia
maintain >2, replete prn
# ROSANNA likely due to IV Lasix
resolved
# IDDM
# Concern for hypoglycemia OFFLINE CUTTER
A1C 8.9%
resumes Lantus low dose at 5 units daily (OFFLINE CUTTER 13 units daily)
- uncontrolled as started pureed diet, will increase to 10u
goal bg 140-180 while inpatient, ccdiet, accuchecks
SSI coverage.
# Clinical deconditioning per
Pt has not been out of room much
PT OT recc SNF
# Subjective back pain
check thoracic/lumbar XR when able
resolved, likely muscle strain
# Dementia, unknown type
Pt is awake but not orientated. This appears to be her baseline MS per
DVT Prophylaxis: Lovenox SQ
Code Status: Full
Anticipated Discharge: > 48 hours
Subjective/Interval History
-
Date of Service: April 12, 2024
Seen and examined. No new complaints. No acute overnight events
Back in sinus rhythm continues to have intermittent low-grade SVT/AVNRT
Remains on 8 L of oxygen. Prior to admit did not need.
Objective Data
-
Vital Signs:
Vital Signs
Temp Pulse Resp BP Pulse Ox
98.0 F 71 16 167/86 96
04/12/24 07:05 04/12/24 13:22 04/12/24 12:00 04/12/24 13:22 04/12/24 10:07
I&O
04/11/24 04/12/24 04/13/24
06:59 06:59 06:59
Intake Total 1720 / 1720 1490 / 1490
Output Total 510 / 510
Balance 1210 / 1210 1490 / 1490
--- NOTE | 2024-04-12 15:02 | CON.ID ---
Consultation
-
Date/Time Consultation Requested: April 12, 2024 1342
Date/Time Consultation Performed: April 12, 2024 1500
Requesting Provider: Dr. Akash Barraza
Performing Provider: Dr. Lamar Langston
Reason for Consultation: Pneumonia, on Zosyn for aspiration
Chief Complaint / Past History
Chief Complaint
Respiratory distress
History of Present Illness
73-year-old female with dementia, diabetes mellitus, atrial fibrillation, who had decrease in mental status and found to have glucose of 45 by her . He gave her sugar and soda for which she then started having respiratory distress with
decrease in oxygenation. EMS brought her to the hospital April 08. She did not tolerate CPAP and therefore placed on high flow oxygen. Chest x-ray shows mild pulmonary edema but patient without edema. She received Lasix on the and 09 April.
procalcitonin negative. Patient is currently on Zosyn day #5 for concern of aspiration pneumonitis. Admission white count was elevated, now normal. Yesterday she went into rapid A-fib. Today patient reports she is feeling much improved. She
denies fevers or chills. No cough. She does not remember events that happened the day of admission. No swallowing difficulties. She wears dentures. No diarrhea. No urinary symptoms. No leg swelling.
Past History
Additional Past Medical History:
Dementia
Diabetes mellitus
Paroxysmal atrial fibrillation/SVT
Hypertension
Compression fracture
Left hip fracture ORIF 2021
Allergy History:
No Known Allergies Allergy (Unverified 04/08/24 07:39)
Medications Reviewed: Yes
Current Antibiotics:
Zosyn day 5
Social History
Tobacco: Former Smoker
Alcohol: None
Drug: None
Personal:
Family History
Family History: Not Pertinent
Review of Systems
Review of Systems
General: Negative Fever, Chills or Change in Appetite
HEENT: Negative Sinus Problems, Headache or Pharyngitis
Cardiovascular: Negative Chest Pain or Edema
Respiratory: Negative Cough
Gasteroenterology: Negative Nausea or Vomiting
Genital / Urological: Negative Dysuria or Flank Pain
Endocrine: Negative Weakness
Skin / Hair / Nails: Negative Rash
Neurological: Negative Dizziness
All systems: All other systems were reviewed and were negative
Vital Signs
Temp Pulse Resp BP Pulse Ox
98.0 F 74 18 171/88 96
04/12/24 07:05 04/12/24 14:00 04/12/24 14:00 04/12/24 14:00 04/12/24 10:07
Physical Exam
Physical Exam
Constitutional: No Acute Distress and Comfortable
Eyes: No Conjunctival Hemorrhage and Sclera Anicteric
Oral: Other (edentulous)
Cardiovascular: Regular Rate and S1/S2
Pulmonary: Rales (bases)
Gastrointestinal: Soft, Non Tender, Non Distended and Normal Bowel Sounds
Genito-Urinary: Negative CVA Tenderness
Extremities: Negative Edema
Neurological: Awake and Alert
Lab / Diagnostic Study Results
04/11/24 05:32
04/11/24 05:32
Abs Immat Gran (auto) 0.1 10^3/uL (0-0.05) H 04/11/24 05:32
Absolute Neuts (auto) 8.5 10^3/uL (1.4-6.5) H 04/11/24 05:32
Absolute Lymphs (auto) 0.7 10^3/uL (1.2-3.4) L 04/11/24 05:32
Absolute Monos (auto) 0.5 10^3/uL (0.1-0.6) 04/11/24 05:32
Absolute Basos (auto) 0.1 10^3/uL (0-0.2) 04/11/24 05:32
Total Counted 100 04/09/24 05:49
Immature Gran % 0.7 % (0-0.5) H 04/11/24 05:32
Neutrophils % 85.6 % (42.2-75.2) H 04/11/24 05:32
Lymphocytes % 6.9 % (20.5-51.1) L 04/11/24 05:32
Monocytes % 5.0 % (1.7-9.3) 04/11/24 05:32
Eosinophils % 0.9 % (0-6) 04/11/24 05:32
Basophils % 0.9 % (0-2) 04/11/24 05:32
Abs Neuts (Manual) 10.1 10^3/uL (1.4-6.5) H 04/09/24 05:49
Segmented Neutrophils 63 % (42-75) 04/09/24 05:49
Band Neutrophils 28 % (0-3) H D 04/09/24 05:49
Lymphocytes (Manual) 5 % (20-51) L 04/09/24 05:49
Basophils (Manual) 2 % 04/09/24 05:49
Lactic Acid 2.8 mmol/L (0.7-2.0) H 04/09/24 05:49
Procalcitonin 0.07 ng/ml (0.0-0.25) 04/08/24 09:17
Microbiology Results
Micro:
04/08/24 07:45 Blood Culture - Preliminary
Blood/Venous No Growth in 4 days- Final report to follow
04/08/24 07:28 Blood Culture - Preliminary
Blood/Venous No Growth in 4 days- Final report to follow
04/08/24 16:47 MRSA Screen - Final
Nose No Methicillin Resistant Staphylococcus aureus isolated.
April 11, 2024 chest x-ray Redemonstration of findings suspicious for mild to moderate pulmonary edema, not appreciable changed compared to the prior study.
April 08, 2024 chest x-ray mild to moderate pulmonary edema. Small left pleural effusion and bibasilar probable atelectasis.
Assessment / Plan
# Suspected aspiration pneumonitis WITHOUT PNA
- DC Zosyn and observe.
# Leukocytosis resolved
# Acute on chronic heart failure
#Afib with RVR, rate controlled.
ID will sign off. Call prn.
[2024-04-12 18:00] LABS: Glucose - Point of Care 273 mg/dl (70-99)
[2024-04-12] MEDS: NOVOLOG FLEXPEN-MODERATE RESISTANCE 5 UNITS SC (19:13)
[2024-04-12] MEDS: LANTUS 0.1 UNITS SC (21:16)
[2024-04-12 21:20] LABS: Glucose - Point of Care 247 mg/dl (70-99)
[2024-04-13] VITALS (12 sets, daily range): BP systolic 102–160; BP diastolic 52–90; BMI 17.3
[2024-04-13 05:47] LABS: NT-proBNP 6140 pg/ml
[2024-04-13 06:10] LABS: Procalcitonin 6.33 ng/ml (0.0-0.25)
--- NOTE | 2024-04-13 06:37 | PTCARENOTE ---
Cared for patient overnight. Was able to wean to 2LNC when awake but pt desated to 84% when asleep without any distress. Bumped to 6LNC when asleep. Back to 3LNC this morning. NSR. VSS. Denies pain. Reminded to turn. BSCX1. Confused & forgetful.
Will monitor.
[2024-04-13 07:46] LABS: Glucose - Point of Care 240 mg/dl (70-99)
[2024-04-13] MEDS: NOVOLOG FLEXPEN-MODERATE RESISTANCE 3 UNITS SC ×3 (08:57→17:39)
[2024-04-13] MEDS: ELIQUIS 5 MG PO ×2 (08:57→20:20)
[2024-04-13] MEDS: CARDIZEM CD 120 MG PO ×2 (08:57→20:20)
[2024-04-13 13:22] LABS: Glucose - Point of Care 237 mg/dl (70-99)
--- NOTE | 2024-04-13 13:36 | W.PN.ID1 ---
Date of Service
Date of Service: April 13, 2024
Today's Communication
- note that it takes several days after an aspiration event for pneumonia to develop - this newly elevated procalcitonin level may represent a new finding
- sputum culture if able to produce one
- fine to plan at least another 6 doses (3 days) of cefdinir
- cbc with diff in the AM, no need for further procalcitonin unless clinically deteriorating in my opinion
- follow up with pulmonary service
Assessment / Plan
# Possible Early Pneumonia
# Leukocytosis resolved 04/11
# Acute on chronic heart failure
# Afib with RVR, rate controlled
# Dysphagia
# Cachexia
- noted to have dysphagia and on aspiration precautions after RECOVERY MANAGER evaluation
- note elevated procalcitonin today, however clinically otherwise improving, CXR findings minimal
- note that it takes several days after an aspiration event for pneumonia to develop - this newly elevated level may represent a new finding
- sputum culture is able to produce one - given CXR I suspect she may not be able to produce one
- fine to plan at least another 6 doses (3 days) of cefdinir
- cbc with diff in the AM, no need for further procalcitonin unless clinically deteriorating in my opinion
- follow up with pulmonary service
Chief Complaint
-: Pneumonia
Subjective / Review of Systems
afebrile
bp stable
O2 requirements down to 2L
without leukocytosis, minimal left shift
CXR with minimal findings
04/08 blood cultures no growth to date
note BNP 6000 consistent with heart failure
not on steroids
reports some productive cough 'Im tyring'
denies coughing/choaking while eating
seen for RECOVERY MANAGER
Vital Signs / Physical Exam
Vital Signs
Vital Signs
Temp Pulse Resp BP Pulse Ox
97.9 F 76 16 152/78 95
04/13/24 11:05 04/13/24 08:57 04/13/24 06:00 04/13/24 08:57 04/13/24 08:55
Objective Data
Lab Data
Lab Results
04/11/24 05:32
04/11/24 05:32
Estimated Creat Clear 47 ml/min 04/11/24 05:32
Lactic Acid 2.8 mmol/L (0.7-2.0) H 04/09/24 05:49
Total Bilirubin 0.8 mg/dl (0.2-1.3) 04/09/24 01:31
AST 31 U/L (14-36) 04/09/24 01:31
ALT 14 U/L (0-35) 04/09/24 01:31
Alkaline Phosphatase 53 U/L (38-126) 04/09/24 01:31
Most recent labs reviewed.
Micro Results:
04/08/24 07:45 Blood Culture - Final
Blood/Venous No Growth - Final Report
04/08/24 07:28 Blood Culture - Final
Blood/Venous No Growth - Final Report
04/08/24 16:47 MRSA Screen - Final
Nose No Methicillin Resistant Staphylococcus aureus isolated.
April 11, 2024 chest x-ray Redemonstration of findings suspicious for mild to moderate pulmonary edema, not appreciable changed compared to the prior study.
April 08, 2024 chest x-ray mild to moderate pulmonary edema. Small left pleural effusion and bibasilar probable atelectasis.
--- NOTE | 2024-04-13 15:34 | W.PN.HOSP.TC ---
Addendum entered and electronically signed by Akash Barraza MD 04/13/24 17:59:
Lactic Acidosis likely related to hypoperfusion. now improving
Initally was likely secondary to aspiration pneumonitis, not however, developing likely an aspiration pneumonia.
Original Note:
Today's Communication/Plan
-
started po atb
repeat cbc in the am
if goes into svt, blow in to small caliber synrige or use prn iv bb, check ekg
if goes into afib provide prn iv bb, check ekg
follow up cardiology
for snf when ready for dc
Assessment / Plan
Assessment / Plan
HPI: 73-year-old female PMH IDDM, Paroxysmal Atrial Fibrillation (not on OAC), Left Femur Fracture s/p ORIF, who was found unresponsive with low BG (45) by her and was given soda and sugar which resulted in respiratory distress. Her MS
improved with improved BS, however she developed SOB. She was unable to tolerate CPAP by EMS, hence was placed on high flow nasal cannula.
Patient remained hypoxic and was placed on BiPAP in the ED, which was then changed to high flow NC at 80%.
Patient is awake, but is a poor historian due to likely underlying cognitive impairment. She is NOT orientated to time (cannot recall which month/year we are in).
Collateral history obtained from on the phone.
General: No Apparent Distress, Conversant and Cachectic
HEENT: Normocephalic (DMM), Atraumatic and Oxygen (8l)
Respiratory: Rhonchi (bibasilar)
Cardiac: Irregular Rhythm and Tachycardic
GI: Soft, Nontender and Nondistended
Musculoskeletal: No Clubbing, No Cyanosis and No Edema
Skin: Warm, Dry and IV Access / Catheter Site
Neuro: Awake, Alert, Oriented, No Motor Deficits and Nonfocal/Grossly Intact
Psych: Calm
A/P:
#New Acute issue
#PAFIB with RVR/SVT with aberrancy (AVNRT)
monitor on tele
potential trigger - pneumonitis/infection vs hypovolemia in the setting of receiving iv diuretics
cards following
-continue bb
-continue ac that was started by cardiology
# Acute hypoxic resp failure due to aspiration pneumonitis from given soda and sugar during unresponsive episode
now on 3l, conitnue to wean o2 as toelrated, maintain goal spo2 >92%
hold on any furth diuretic use
procal negative, now up, could be start of early pna for which it take typically 5-10days for aspiration pna to develop after pneumonitis event
check sputum culture if able to produce sputum
covid test neagtive
zosyn was stopped yday, id resume atb with po cefdinir
pulm following
# Hypomagnesemia
maintain >2, replete prn
# ROSANNA likely due to IV Lasix
resolved
# IDDM
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
A1C 8.9%
resumes Lantus low dose at 5 units daily (MUSEUM EXHIBIT TECHNICIAN 13 units daily)
- uncontrolled as started pureed diet, will increase to 10u
goal bg 140-180 while inpatient, ccdiet, accuchecks
SSI coverage.
# Clinical deconditioning per
Pt has not been out of room much
PT OT recc SNF
# Subjective back pain
check thoracic/lumbar XR when able
resolved, likely muscle strain
# Dementia, unknown type
Pt is awake but not orientated. This appears to be her baseline MS per
Dispo: SNF
DVT Prophylaxis: Lovenox SQ
Code Status: Full
Anticipated Discharge: 24 - 48 hours
Subjective/Interval History
-
Date of Service: April 13, 2024
seen and examined. on 3l with spo2 of 94-95%. no new compalints. no acute ovenriggt events
intermittent runs of svt, short lived
Objective Data
-
Vital Signs:
Vital Signs
Temp Pulse Resp BP Pulse Ox
97.9 F 76 16 152/78 95
04/13/24 11:05 04/13/24 08:57 04/13/24 06:00 04/13/24 08:57 04/13/24 08:55
I&O
04/12/24 04/13/24 04/14/24
06:59 06:59 06:59
Intake Total 1490 / 1490 480 / 480
Output Total 100 / 100
Balance 1490 / 1490 480 / 480 -100 / -100
--- NOTE | 2024-04-13 15:44 | W.PN.CARDCBS ---
Today's Communication / Plan
-
Remains in sinus rhythm. Will sign off
Impression / Plan
-
[employer] Color Mixer: Dr. MARIA FERNANDA Hinton, last seen in 2020 and lost to follow up
Impression:
Presented with hypoxia
Aspiration pneumonitis
SVT
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
Paroxysmal Afib, Spontaneously converted to sinus rhythm
Not chronically anticoagulated
DM 2 on insulin
HTN
Former smoker
Echo 05/29/2021: EF 65-70%, no significant valvular disease
Echo 04/11/2024: EF 60-65%, no significant valvular disease, small pericardial effusion
Plan:
She remains in sinus rhythm.
Will continue Cardizem
Continue Eliquis
[id number] score of at least 5 (HTN, age, DM2, sex)
Volume status reasonable on no diuretics
Stable cardiology status
Will sign off
HPI: Ale is a 73 year old female with PMH of SVT, paroxysmal atrial fibrillation, DM2, and HTN who presented to [facility] for evaluation after she had an unresponsive episode at home. Reportedly she became unresponsive and there was concern that she
was hypoglycemic and her gave her sugar and soda. There is concern she may have aspirated during this time. She was brought to and placed on high flow oxygen. She has also been on IV abx. In AM 7, patient went into rapid atrial
fibrillation. She was given a bolus of cardizem and BPs dropped, however HRs have persistently been in the 150s. She has history of atrial fibrillation as well as SVT in 2020. She is not maintained on anticoagulation and is not on any rate control
medications as OP. Unclear if she has been having episodes of atrial fibrillation at home as she appears to be asymptomatic with her tachycardia. Despite HR 154 and BP as low as 76/54, she feel well and is without any complaints currently. Due to
persistent tachycardia with hypotension, she was given IVF bolus as well as 250 mcg of digoxin.
Progress Note - [employer] Color Mixer
Subjective
Date of Service: April 13, 2024
No complaints
Objective
Labs:
04/11/24 05:32
04/11/24 05:32
Labs
Hgb 12.0 g/dL (12.0-16.0) 04/11/24 05:32
Hct 36.3 % (37.0-47.0) L 04/11/24 05:32
Plt Count 205 10^3/uL (130-400) 04/11/24 05:32
Sodium 134 mmol/L (135-145) L 04/11/24 05:32
Potassium 3.8 mmol/L (3.5-5.1) 04/11/24 05:32
BUN 25 mg/dl (7-17) H 04/11/24 05:32
Creatinine 0.8 mg/dL (0.6-1.0) 04/11/24 05:32
Glucose 269 mg/dl (70-99) H 04/11/24 05:32
Vital Signs and I&O:
Vital Signs
Temp Pulse Resp BP Pulse Ox
97.9 F 76 16 152/78 95
04/13/24 11:05 04/13/24 08:57 04/13/24 06:00 04/13/24 08:57 04/13/24 08:55
Vital Signs
Temp Pulse Resp BP Pulse Ox
97.9 F 76 16 152/78 95
04/13/24 11:05 04/13/24 08:57 04/13/24 06:00 04/13/24 08:57 04/13/24 08:55
Intake & Output
04/11/24 04/12/24 04/13/24 04/14/24
06:59 06:59 06:59 06:59
Intake Total 1720 / 1720 1490 / 1490 480 / 480
Output Total 510 / 510 100 / 100
Balance 1210 / 1210 1490 / 1490 480 / 480 -100 / -100
Physical Exam
Physical Exam
General: Well developed, well nourished in NAD.
Neck: Supple, no JVD, HJR, carotids +2 B/L, no bruits bilaterally.
Heart: Non displaced PMI, RRR, no murmurs, No S3, S4, no rubs.
Lungs: scattered rhonchi
Abdomen: Normal bowel sounds, soft, non-tender, non-distended.
Extremities: No clubbing, cyanosis or edema bilaterally.
Neuro: Grossly nonfocal, awake, alert and oriented x3.
[2024-04-13] MEDS: LOPRESSOR IV (17:12)
--- NOTE | 2024-04-13 17:17 | W.PN.PUL3 ---
Today's Communication / Plan
-
Ox requirement has improved, now down to 1 L
Chest x-ray with mild improvement
Continue rate control per cardiology
Aspiration precautions
We will sign off. Please call with questions
Assessment
-
73-year-old female with history of diabetes, noncompliance, history of DKA, paroxysmal atrial fibrillation, questionable dementia who presents with acute respiratory insufficiency, hypoxia, suspected aspiration. Patient required high flow oxygen in
the field. We are asked to help from pulmonary standpoint
Impression:
Acute respiratory failure with hypoxia � likely due to acute HFpEF exacerbation in the setting of aspiration
Suspected acute aspiration
Bibasilar infiltrate
Acute hypoxic respiratory insufficiency requiring high flow oxygen
80% saturation
Insulin-dependent diabetes
Noncompliant
History of DKA 2021, history of frequent hypoglycemia according to patient
Leukocytosis
Elevated lactate
Sinus tachycardia
Conditions present prior to admission
Paroxysmal atrial fibrillation, not on anticoagulation
History of fall with left femur fracture, ORIF 2021
Dementia
[id number] history of smoking, quit 1999 (no PFT or spirometry on file)
Plan/recommendations
At this time, patient appears to be comfortable. She is not in respiratory distress.
She remains on midflow NC from high flow NC
Now has been weaned down to 1 L
Chest exam with bibasilar crackles otherwise good air exchange.
Developed tachycardia, heart rate 150s at this time
Chest x-ray today shows mild improvement
ABG 04/08/24: 7.48/34//
proBNP 1280 --> 5290
ECHO from 2020 with preserved function
Rate control per cardiology. As needed beta-julius. Continues calcium channel julius
Defer diet to OFFAL BALER
Suspect this may have been an acute aspiration event
Presented while 'drinking sugar water' in the middle the night for hypoglycemia. Per records, patient developed gurgling and respiratory distress thereafter
Speech following, high risk
Continue Zosyn therapy for now to complete 7 days of ABx
Follow blood sugars. Anion gap presently 16. Follow given history of DKA
Elevated lactate, trending down
Trend procal to ensure source control
No indication for BiPAP at this time
Head of bed elevated, aspiration precautions
DVT prophylaxis: Started on Eliquis today
PT/OT -recommend skilled rehab
OOB
We will sign off. Please call with questions
Diagnostic Data
CXR 04/11/2024: Redemonstration of findings suspicious for mild to moderate pulmonary edema, not appreciable changed compared to the prior study.
CXR 04/08/24- Mild to moderate pulmonary edema. Small left pleural effusion and bibasilar probable atelectasis.
CXR 11/08/21- No radiographic evidence of acute cardiopulmonary abnormality.
ECHO 05/29/21- Normal left ventricular size, wall thickness and systolic function. No regional wall motion abnormalities are seen. LV ejection fraction is 65-70% by visual assessment. Trace tricuspid regurgitation. No significant valvular disease.
Compared to previous echo from August 05, 2015, there is no significant change.
Subjective Data
-
Date of Service:
Date of Service: April 13, 2024
Chief Complaint: Pulmonary Follow Up
Subjective:
Patient sitting in chair. Feels like crap. Denies chest pain, lightheadedness, dizziness, palpitations. Appears comfortable, no use of accessory muscles
Objective Data
Data Reviewed
Vital Signs / I&O / Oxygen:
Vital Signs
Temp Pulse Resp BP Pulse Ox
97.9 F 153 27 148/80 92
04/13/24 11:05 04/13/24 17:12 04/13/24 14:00 04/13/24 17:12 04/13/24 17:00
Intake and Output
04/12/24 04/13/24 04/14/24
06:59 06:59 06:59
Intake Total 1490 / 1490 480 / 480 420 / 420
Output Total 200 / 200
Balance 1490 / 1490 480 / 480 220 / 220
SaO2 92
Nasal Cannula flow liters per 1
minute
Physical Exam
General: Comfortable, Other (deconditioned) and Other (NAD, chronically ill appearing)
HEENT: Normocephalic, Anicteric and Moist Mucous Membranes
Cardiovascular: S1-S2, Regular Rhythm, Murmur (Tachycardic) and Peripheral Edema (Negative)
Respiratory: Wheeze (Negative), Crackles (Bilaterally), Rhonchi (Bilaterally at the bases) and Non-Labored Respirations
GI: Soft, Non Distended and Non Tender
Neurology: Awake, Alert and No Motor Deficits
Skin: Warm, Cyanosis (n) and Rash (n)
Labs/Micro/Reports
Lab Data
04/11/24 05:32
04/11/24 05:32
Microbiology
04/08/24 07:45 Blood/Venous Blood Culture - Final
No Growth - Final Report
04/08/24 07:28 Blood/Venous Blood Culture - Final
No Growth - Final Report
[2024-04-13 17:43] LABS: Glucose - Point of Care 239 mg/dl (70-99)
[2024-04-13] MEDS: OMNICEF 300 MG PO (20:21)
[2024-04-13 21:19] LABS: Glucose - Point of Care 205 mg/dl (70-99)
[2024-04-13] MEDS: LANTUS 0.1 UNITS SC (21:56)
[2024-04-14] VITALS (12 sets, daily range): BP systolic 139–163; BP diastolic 71–89; BMI 17.3
[2024-04-14 06:00] LABS: % Basophils 0.9 % (0-2); % Eosinophils 5.3 % (0-6); % Immature Granulocytes 0.5 % (0-0.5); % Lymphocytes 18.9 % (20.5-51.1); % Monocytes 12.2 % (1.7-9.3); % Neutrophils 62.2 % (42.2-75.2); Absolute Basophils 0.1 10^3/uL (0-0.2); Absolute Eosinophils 0.3 10^3/uL (0-0.7); Absolute Monocytes 0.7 10^3/uL (0.1-0.6); Absolute Neutrophils 3.4 10^3/uL (1.4-6.5); Hemoglobin 12.1 g/dL (12.0-16.0); Mean Corp Hgb Conc. 33.6 g/dL (33.0-37.0); Mean Corpuscular Volume 86.3 fL (81.0-99.0); Mean Platelet Volume 9.9 fL (7.4-10.4); Nucleated Red Blood Cells % 0 %; Platelet Count 251 10^3/uL (130-400); Red Blood Cell Count 4.17 10^6/uL (4.20-5.40); Red Cell Dist. Width 13.9 % (11.5-14.5); White Blood Cell Count 5.5 10^3/uL (4.8-10.8)
[2024-04-14 06:23] LABS: Blood Urea Nitrogen 13 mg/dl (7-17); Calcium 8.5 mg/dl (8.4-10.2); Carbon Dioxide 26 mmol/L (22-30); Chloride 104 mmol/L (98-107); Estimated Creatinine Clearance 64 ml/min; Glucose 122 mg/dl (70-99); Potassium 3.8 mmol/L (3.5-5.1); Sodium 136 mmol/L (135-145); eGFR > 60.00
[2024-04-14 06:59] LABS: Glucose - Point of Care 100 mg/dl (70-99)
[2024-04-14 07:46] LABS: Glucose - Point of Care 106 mg/dl (70-99)
--- NOTE | 2024-04-14 09:39 | W.PN.ID1 ---
Date of Service
Date of Service: April 14, 2024
Today's Communication
Continue cefdinir
Assessment / Plan
# Possible Early Pneumonia
# Leukocytosis resolved 04/11
# Acute on chronic heart failure
# Afib with RVR, rate controlled
# Dysphagia
# Cachexia
- noted to have dysphagia and on aspiration precautions after HEMODIALYSIS CHARGE NURSE evaluation
- Continue current course of cefdinir
- follow up with pulmonary service
Chief Complaint
-: Pneumonia
Subjective / Review of Systems
Review of Systems: No Fever, No Chills and No Cough
Vital Signs / Physical Exam
Vital Signs
Vital Signs
Temp Pulse Resp BP Pulse Ox
98.4 F 78 19 158/84 95
04/14/24 07:07 04/14/24 08:00 04/14/24 08:00 04/14/24 08:00 04/14/24 08:00
Physical Exam
Constitutional: No Acute Distress, Comfortable, Chronically Ill and Non-toxic
Eyes: Sclera Anicteric
Cardiovascular: S1/S2; Negative S3/S4
Pulmonary: Coarse and Non Labored
Gastrointestinal: Soft, Non Tender and Non Distended
Skin: Negative Rash or Jaundice
Neurological: Awake and Alert
Psychological: Calm
Objective Data
Lab Data
Lab Results
04/14/24 05:21
04/14/24 05:21
Estimated Creat Clear 64 ml/min 04/14/24 05:21
Lactic Acid 2.8 mmol/L (0.7-2.0) H 04/09/24 05:49
Total Bilirubin 0.8 mg/dl (0.2-1.3) 04/09/24 01:31
AST 31 U/L (14-36) 04/09/24 01:31
ALT 14 U/L (0-35) 04/09/24 01:31
Alkaline Phosphatase 53 U/L (38-126) 04/09/24 01:31
Most recent labs reviewed.
Micro Results:
04/08/24 07:45 Blood Culture - Final
Blood/Venous No Growth - Final Report
04/08/24 07:28 Blood Culture - Final
Blood/Venous No Growth - Final Report
04/08/24 16:47 MRSA Screen - Final
Nose No Methicillin Resistant Staphylococcus aureus isolated.
April 11, 2024 chest x-ray Redemonstration of findings suspicious for mild to moderate pulmonary edema, not appreciable changed compared to the prior study.
April 08, 2024 chest x-ray mild to moderate pulmonary edema. Small left pleural effusion and bibasilar probable atelectasis.
[2024-04-14] MEDS: NOVOLOG FLEXPEN-MODERATE RESISTANCE SC (10:19)
[2024-04-14] MEDS: CARDIZEM CD 120 MG PO ×2 (10:20→20:33)
[2024-04-14] MEDS: ELIQUIS 5 MG PO ×2 (10:20→20:33)
[2024-04-14] MEDS: OMNICEF 300 MG PO ×2 (10:20→20:33)
[2024-04-14 12:42] LABS: Glucose - Point of Care 162 mg/dl (70-99)
[2024-04-14] MEDS: NOVOLOG FLEXPEN-MODERATE RESISTANCE 1 UNITS SC (14:16)
--- NOTE | 2024-04-14 15:07 | W.PN.HOSP.TC ---
Today's Communication/Plan
-
Will begin discharge planning to SNF
Continue as needed IV beta-julius if needed
If continues to have the small runs and is requiring IV beta-blockade then can increase CCB as there is room
Wean oxygen as tolerated
Assessment / Plan
Assessment / Plan
HPI: 73-year-old female PMH IDDM, Paroxysmal Atrial Fibrillation (not on OAC), Left Femur Fracture s/p ORIF, who was found unresponsive with low BG (45) by her and was given soda and sugar which resulted in respiratory distress. Her MS
improved with improved BS, however she developed SOB. She was unable to tolerate CPAP by EMS, hence was placed on high flow nasal cannula.
Patient remained hypoxic and was placed on BiPAP in the ED, which was then changed to high flow NC at 80%.
Patient is awake, but is a poor historian due to likely underlying cognitive impairment. She is NOT orientated to time (cannot recall which month/year we are in).
Collateral history obtained from on the phone.
General: No Apparent Distress, Conversant and Cachectic
HEENT: Normocephalic (DMM), Atraumatic and Oxygen (8l)
Respiratory: Rhonchi (bibasilar)
Cardiac: Irregular Rhythm and Tachycardic
GI: Soft, Nontender and Nondistended
Musculoskeletal: No Clubbing, No Cyanosis and No Edema
Skin: Warm, Dry and IV Access / Catheter Site
Neuro: Awake, Alert, Oriented, No Motor Deficits and Nonfocal/Grossly Intact
Psych: Calm
A/P:
#New Acute issue
#PAFIB with RVR/SVT with aberrancy (AVNRT)
monitor on tele
potential trigger - pneumonitis/infection vs hypovolemia in the setting of receiving iv diuretics
cards following
-continue ccb po, for which we have room on if she continues to go into these intermittent small episodes
-continue ac that was started by cardiology
-prn beta-julius IV
# Acute hypoxic resp failure due to aspiration pneumonitis from given soda and sugar during unresponsive episode
now on 1-2l, conitnue to wean o2 as toelrated, maintain goal spo2 >92%
hold on any furth diuretic use
procal negative, now up, could be start of early pna for which it take typically 5-10days for aspiration pna to develop after pneumonitis event
check sputum culture if able to produce sputum
covid test neagtive
zosyn was stopped yday, id resume atb with po cefdinir
pulm following
# Hypomagnesemia
maintain >2, replete prn
# ROSANNA likely due to IV Lasix
resolved
# IDDM
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
A1C 8.9%
resumes Lantus low dose at 5 units daily (RECYCLING SPECIALIST 13 units daily)
- uncontrolled as started pureed diet, will increase to 10u
goal bg 140-180 while inpatient, ccdiet, accuchecks
SSI coverage.
# Clinical deconditioning per
Pt has not been out of room much
PT OT recc SNF
# Subjective back pain
check thoracic/lumbar XR when able
resolved, likely muscle strain
# Dementia, unknown type
Pt is awake but not orientated. This appears to be her baseline MS per
Dispo: SNF
DVT Prophylaxis: Lovenox SQ
Code Status: Full
Anticipated Discharge: 24 - 48 hours
Subjective/Interval History
-
Date of Service: April 14, 2024
Seen and examined. No new complaints. No acute overnight events.
Now between 1 and 2 L nasal cannula oxygen
I spoke with special forces specialist this morning he informs me that she had a brief run of SVT into 160s. There was no enough time to provide beta-blockade with resolution of SVT prior to administration.
Objective Data
-
Labs:
Laboratory Results
04/14/24
05:21
WBC 5.5
Hgb 12.1
Hct 36.0 L
Plt Count 251 D
Sodium 136
Potassium 3.8
Chloride 104
Carbon Dioxide 26
BUN 13
Creatinine 0.6
Glucose 122 H
Calcium 8.5
Vital Signs:
Vital Signs
Temp Pulse Resp BP Pulse Ox
98.2 F 78 19 158/84 95
04/14/24 11:38 04/14/24 08:00 04/14/24 08:00 04/14/24 08:00 04/14/24 08:00
I&O
04/13/24 04/14/24 04/15/24
06:59 06:59 06:59
Intake Total 480 / 480 420 / 420 240 / 240
Output Total 200 / 200 200 / 200
Balance 480 / 480 220 / 220 40 / 40
--- NOTE | 2024-04-14 16:58 | PTCARENOTE ---
oxygen 1L nasal canula; pox 93-95% at rest. assisted pt oob to chair and bedside commode. pox dropping to 89% and heart rate slightly tachycardic at 110 bpm, resp 30. pt symptomatic 'I don't feel good'. Symptoms resolving after 1-2 mins of rest and
pox returning to 93% on 1L. Oxygen maintained at 1 liter. continuing to monitor
[2024-04-14 17:50] LABS: Glucose - Point of Care 253 mg/dl (70-99)
[2024-04-14] MEDS: NOVOLOG FLEXPEN-MODERATE RESISTANCE 5 UNITS SC (18:44)
[2024-04-14] MEDS: LANTUS 0.1 UNITS SC (22:07)
[2024-04-14 22:12] LABS: Glucose - Point of Care 262 mg/dl (70-99)
[2024-04-15] VITALS (14 sets, daily range): BP systolic 105–162; BP diastolic 68–92; PULSE 82–84; O2SAT 98; BMI 17.2
--- NOTE | 2024-04-15 04:19 | PTCARENOTE ---
Baseline forgetful. Both incont/cont of urine. No BM. Swallows pills whole w/ applesauce w/o issues. Tele showing NSR, HR 70-80s. 1-2L NC overnight, cough non-productive. Encouraged to reposition self while in bed. Denies any pain. Bed alarm set for
safety. Call ramirez and tray table within reach.
[2024-04-15] MEDS: ELIQUIS 5 MG PO ×2 (07:06→20:45)
[2024-04-15] MEDS: CARDIZEM CD 120 MG PO ×2 (07:07→20:46)
[2024-04-15] MEDS: OMNICEF 300 MG PO ×2 (07:07→20:46)
[2024-04-15] MEDS: NOVOLOG FLEXPEN-MODERATE RESISTANCE 1 UNITS SC (07:09)
[2024-04-15 07:19] LABS: Glucose - Point of Care 166 mg/dl (70-99)
--- NOTE | 2024-04-15 07:27 | PN.DE.MGMTRT ---
Insulin Management
- -
04/15/2024 Diabetes Management Consult
Patient admitted 04/08, diabetes management consult placed 04/13, s/p hypoglycemia, glucose 45 @ home, then given juice and sugar. On arrival to hospital developed respiratory distress, most likely due to aspiration. PMH afib, dementia, L femur
fracture. Prior to admission records indicate patient was taking 13 units lantus in AM with ss novolog for meals and metformin 500 mg daily. A1C on admission 8.9%. CR .6, eGFR > 60 today.
Lantus has been started 10 units at HS with moderate corrective insulin. Diet is dysphagia. Glucose trended 100 to 262 04/14. Will stop moderate corrective and start 2 units novolog AC with low corrective insulin.
Diabetes History
- -
Type of Diabetes: 2 requiring insulin
Pre-Admission Diabetes Regimen
Lab Results
Hemoglobin A1c 8.9 % (4.0-5.6) H 04/09/24 05:49
Insulin Pump Settings
IP Diabetes Regimen
04/14/24 04/14/24 04/14/24
07:34 12:30 17:39
POC Glucose 106 H 162 H 253 H
04/14/24 04/15/24
22:00 07:08
POC Glucose 262 H 166 H
Meal type: Breakfast
Amount consumed: 90%
Patient Education
[2024-04-15] MEDS: NOVOLOG FLEXPEN 2 UNITS SC ×2 (09:03→12:10)
[2024-04-15] MEDS: NOVOLOG FLEXPEN-LOW RESISTANCE SC (09:08)
--- NOTE | 2024-04-15 09:36 | W.PN.ID1 ---
Date of Service
Date of Service: April 15, 2024
Today's Communication
- Continue current course of cefdinir - 2 further doses
- follow up with PCP; ID service will no longer actively follow this patient please recall for further questions
Assessment / Plan
# Possible Early Pneumonia
# Acute on chronic heart failure
# Afib with RVR, rate controlled
# Dysphagia
# Cachexia
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
- 7/4 wbc 5.5 and no left shift; no need for further procalcitonin unless clinically deteriorating in my opinion
- Continue current course of cefdinir - 2 further doses
- follow up with PCP; ID service will no longer actively follow this patient please recall for further questions
Chief Complaint
-: Pneumonia
Subjective / Review of Systems
remains afebrile
bp stable
on 1-2 L O2
7/4 wbc 5.5 and no left shift
Vital Signs / Physical Exam
Vital Signs
Vital Signs
Temp Pulse Resp BP Pulse Ox
98.1 F 81 16 171/93 94
04/15/24 07:21 04/15/24 07:07 04/15/24 06:00 04/15/24 07:07 04/15/24 06:00
Physical Exam
Constitutional: No Acute Distress and Chronically Ill
Cardiovascular: Regular Rate
Pulmonary: Symmetric and Non Labored
Gastrointestinal: Non Distended
Skin: Dry; Negative Rash or Jaundice
Neurological: Awake
Objective Data
Lab Data
Lab Results
04/14/24 05:21
04/14/24 05:21
Estimated Creat Clear 64 ml/min 04/14/24 05:21
Lactic Acid 2.8 mmol/L (0.7-2.0) H 04/09/24 05:49
Total Bilirubin 0.8 mg/dl (0.2-1.3) 04/09/24 01:31
AST 31 U/L (14-36) 04/09/24 01:31
ALT 14 U/L (0-35) 04/09/24 01:31
Alkaline Phosphatase 53 U/L (38-126) 04/09/24 01:31
Most recent labs reviewed.
Micro Results:
04/08/24 07:45 Blood Culture - Final
Blood/Venous No Growth - Final Report
04/08/24 07:28 Blood Culture - Final
Blood/Venous No Growth - Final Report
04/08/24 16:47 MRSA Screen - Final
Nose No Methicillin Resistant Staphylococcus aureus isolated.
April 11, 2024 chest x-ray Redemonstration of findings suspicious for mild to moderate pulmonary edema, not appreciable changed compared to the prior study.
April 08, 2024 chest x-ray mild to moderate pulmonary edema. Small left pleural effusion and bibasilar probable atelectasis.
--- NOTE | 2024-04-15 11:03 | CM ---
Addendum entered by Mellissa Beckford 04/15/24 12:19:
Plan: Discharge to [facility] pending insurance AUTH approval
Pending Authorization # [id number]
Report # [phone]

Addendum entered by Mellissa Beckford 04/15/24 11:09:
Patient and spouse agreeable with discharge plan; CM contacted [employer] via phone to submit Authorization
Original Note:
Plan: Discharge to [facility] pending insurance AUTH approval
Report # [phone]
[2024-04-15 11:48] LABS: Glucose - Point of Care 265 mg/dl (70-99)
[2024-04-15] MEDS: NOVOLOG FLEXPEN-LOW RESISTANCE 3 UNITS SC (12:10)
--- NOTE | 2024-04-15 12:18 | W.PN.HOSP.TC ---
Today's Communication/Plan
-
Begin discharge planning.
Continue to wean as tolerated
Continue Cardizem p.o.
-If needed Cardizem can be increased
Continue Eliquis p.o. twice daily
Lantus and aspart dose adjusted
[facility] excepted bed available, awaiting insurance authorization
Assessment / Plan
Assessment / Plan
HPI: 73-year-old female PMH IDDM, Paroxysmal Atrial Fibrillation (not on OAC), Left Femur Fracture s/p ORIF, who was found unresponsive with low BG (45) by her and was given soda and sugar which resulted in respiratory distress. Her MS
improved with improved BS, however she developed SOB. She was unable to tolerate CPAP by EMS, hence was placed on high flow nasal cannula.
Patient remained hypoxic and was placed on BiPAP in the ED, which was then changed to high flow NC at 80%.
Patient is awake, but is a poor historian due to likely underlying cognitive impairment. She is NOT orientated to time (cannot recall which month/year we are in).
Collateral history obtained from on the phone.
General: No Apparent Distress, Conversant and Cachectic
HEENT: Normocephalic (DMM), Atraumatic and Oxygen (8l)
Respiratory: Rhonchi (bibasilar)
Cardiac: Irregular Rhythm and Tachycardic
GI: Soft, Nontender and Nondistended
Musculoskeletal: No Clubbing, No Cyanosis and No Edema
Skin: Warm, Dry and IV Access / Catheter Site
Neuro: Awake, Alert, Oriented, No Motor Deficits and Nonfocal/Grossly Intact
Psych: Calm
A/P:
#New Acute issue
#PAFIB with RVR/SVT with aberrancy (AVNRT)
monitor on tele
potential trigger - pneumonitis/infection vs hypovolemia in the setting of receiving iv diuretics
cards following
-continue ccb po, for which we have room on if she continues to go into these intermittent small episodes
-continue ac that was started by cardiology
-prn beta-julius IV
# Acute hypoxic resp failure due to aspiration pneumonitis from given soda and sugar during unresponsive episode
now on 1-2l, conitnue to wean o2 as toelrated, maintain goal spo2 >92%
hold on any furth diuretic use
procal negative, now up, could be start of early pna for which it take typically 5-10days for aspiration pna to develop after pneumonitis event
check sputum culture if able to produce sputum
covid test neagtive
zosyn was stopped yday, id resume atb with po cefdinir
pulm following
# Hypomagnesemia
maintain >2, replete prn
# ROSANNA likely due to IV Lasix
resolved
# IDDM
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
A1C 8.9%
resumes Lantus low dose at 5 units daily (FINANCIAL AID COUNSELOR 13 units daily)
- uncontrolled as started pureed diet, will increase to 10u
goal bg 140-180 while inpatient, ccdiet, accuchecks
SSI coverage.
# Clinical deconditioning per
Pt has not been out of room much
PT OT recc SNF
# Subjective back pain
check thoracic/lumbar XR when able
resolved, likely muscle strain
# Dementia, unknown type
Pt is awake but not orientated. This appears to be her baseline MS per
Dispo: SNF
DVT Prophylaxis: Lovenox SQ
Code Status: Full
Anticipated Discharge: Within 24 hours
Subjective/Interval History
-
Date of Service: April 15, 2024
Seen and examined. No new complaints. No acute overnight events.
Sitting in bedside chair. Tolerating diet well.
States breathing has improved. On 1 to 2 L nasal cannula with O2 sat of between 92 and 94%.
In sinus rhythm on telemetry at a rate of 90
Objective Data
-
Vital Signs:
Vital Signs
Temp Pulse Resp BP Pulse Ox
98.4 F 81 16 171/93 95
04/15/24 11:10 04/15/24 07:07 04/15/24 06:00 04/15/24 07:07 04/15/24 10:38
I&O
04/14/24 04/15/24 04/16/24
06:59 06:59 06:59
Intake Total 420 / 420 240 / 240
Output Total 200 / 200 550 / 550
Balance 220 / 220 -310 / -310
--- NOTE | 2024-04-15 12:42 | PTCARENOTE ---
Received pt this am. AAOx3 with moments of confusion. No c/o pain. c/o of nausea this am, denied medication at this time. Presently in normal sinus rhythm. patient with history of sv rhythm, cardiology aware. Heart rate in 80-90s. Blood pressure
elevated this am, now 148/80. 98% on 2L. incontinent of urine at times. resting comfortably and call ramirez in reach.
--- NOTE | 2024-04-15 16:15 | PN.DE.MGMTRT ---
Insulin Management
- -
04/15/2024 Diabetes Management Consult
Patient admitted 04/08, diabetes management consult placed 04/13, s/p hypoglycemia, glucose 45 @ home, then given juice and sugar. On arrival to hospital developed respiratory distress, most likely due to aspiration. PMH afib, dementia, L femur
fracture. Prior to admission records indicate patient was taking 13 units lantus in AM with ss novolog for meals and metformin 500 mg daily. A1C on admission 8.9%. CR .6, eGFR > 60 today.
Lantus has been started 10 units at HS with moderate corrective insulin. Diet is dysphagia. Glucose trended 100 to 262 04/14. Will stop moderate corrective and start 2 units novolog AC with low corrective insulin.
*I spoke with patient she is pleasant but confused. I am not sure but she states she sometimes gives her own insulin and sometimes her does. I am concerned with safety at home with insulin. According to external medical summary she has
been ordered a freestyle CGM. She cannot confirm that she has this.
Pre lunch glucose 265, will increase ac novolog to 4 units. Nurse to txt me pre dinner glucose if less than 100
Diabetes History
- -
Type of Diabetes: 2 requiring insulin
Pre-Admission Diabetes Regimen
Lab Results
Hemoglobin A1c 8.9 % (4.0-5.6) H 04/09/24 05:49
Insulin Pump Settings
IP Diabetes Regimen
04/14/24 04/14/24 04/15/24
17:39 22:00 07:08
POC Glucose 253 H 262 H 166 H
04/15/24
11:37
POC Glucose 265 H
Meal type: Breakfast
Amount consumed: 90%
Patient Education
[2024-04-15 16:39] LABS: Glucose - Point of Care 336 mg/dl (70-99)
[2024-04-15] MEDS: NOVOLOG FLEXPEN 4 UNITS SC (17:03)
[2024-04-15] MEDS: PREVNAR 20 0.5 ML IM (17:04)
[2024-04-15] MEDS: NOVOLOG FLEXPEN-LOW RESISTANCE 4 UNITS SC (17:04)
--- NOTE | 2024-04-15 18:07 | PTCARENOTE ---
Reviewed Annemarie, RN's, documentation. Agree with assessment and note
[2024-04-15] MEDS: LANTUS 0.1 UNITS SC (21:44)
[2024-04-15 21:55] LABS: Glucose - Point of Care 222 mg/dl (70-99)
[2024-04-16] VITALS (12 sets, daily range): BP systolic 115–154; BP diastolic 65–86; BMI 16.6; BMI 16.5
--- NOTE | 2024-04-16 02:08 | PTCARENOTE ---
Pt had no complaints at this time. Pt appearing anxious at times, emotional support given. Pt able to fall asleep for a short time. Vitas stable at this time. Assessment care and vitals as charted.
[2024-04-16 07:20] LABS: Glucose - Point of Care 167 mg/dl (70-99)
[2024-04-16] MEDS: NOVOLOG FLEXPEN-LOW RESISTANCE 1 UNITS SC (07:51)
[2024-04-16] MEDS: CARDIZEM CD 120 MG PO ×2 (07:52→21:09)
[2024-04-16] MEDS: NOVOLOG FLEXPEN 4 UNITS SC ×3 (07:52→18:00)
[2024-04-16] MEDS: OMNICEF 300 MG PO (07:53)
[2024-04-16] MEDS: ELIQUIS 5 MG PO ×2 (07:53→21:09)
[2024-04-16] MEDS: ZOFRAN 4 MG IV (08:53)
[2024-04-16] MEDS: FLUSH (NSS) 2 FLUSH IV (08:53)
--- NOTE | 2024-04-16 10:09 | CM ---
GARRY called Linda to check status of auth; this is still pending at this time. Call reference #[id number]
Pending auth #[id number]; Linda phone number: [phone].
Plan: GARRY to follow for discharge to [facility] when authorization approved.
--- NOTE | 2024-04-16 10:12 | PTCARENOTE ---
Assumed care of pt at 0500. Pt awake, alert and oriented x 2. Conversation is fluent but there is flight of thoughts and she becomes agitated. Pt angry when staff offered to work on caring for her matted hair and pt refuses to allow staff to assist
with hair care. Pt pulse ox on 2L humidified NC 95%. Room air check and pt is 89-90%. 2 L reapplied and pulse ox 94% Lungs are diminished in bases and few crackles. No cough this am. Abd soft but slightly distended, no BM x 3 days. Pt takes a fe
bites of breakfast but then c/o nausea. IV Zofran given and nausea resolved.
[2024-04-16 12:43] LABS: Glucose - Point of Care 101 mg/dl (70-99)
[2024-04-16] MEDS: NOVOLOG FLEXPEN-LOW RESISTANCE SC ×2 (12:46→16:53)
--- NOTE | 2024-04-16 13:18 | W.PN.HOSP.TC ---
Today's Communication/Plan
-
downgrade to tele
prn lopressor if needed
Assessment / Plan
Assessment / Plan
General: No Apparent Distress, Conversant and Cachectic
HEENT: Normocephalic (DMM), Atraumatic and Oxygen (8l)
Respiratory: Rhonchi (bibasilar)
Cardiac: Irregular Rhythm and Tachycardic
GI: Soft, Nontender and Nondistended
Musculoskeletal: No Clubbing, No Cyanosis and No Edema
Skin: Warm, Dry and IV Access / Catheter Site
Neuro: Awake, Alert, Oriented, No Motor Deficits and Nonfocal/Grossly Intact
Psych: Calm
A/P:
#PAFIB with RVR/SVT with aberrancy (AVNRT)
monitor on tele
potential trigger - pneumonitis/infection vs hypovolemia in the setting of receiving iv diuretics
cards following
-continue ccb po, for which we have room on if she continues to go into these intermittent small episodes
-continue ac that was started by cardiology
-prn beta-julius IV
# Acute hypoxic resp failure due to aspiration pneumonitis from given soda and sugar during unresponsive episode
now on 1-2l, conitnue to wean o2 as toelrated, maintain goal spo2 >92%
hold diuretics, repeat bmp in the AM, if Cr stable will resume diuretics potentially EOD for hx of HFpEF
procal negative, now up, could be start of early pna for which it take typically 5-10days for aspiration pna to develop after pneumonitis event
check sputum culture if able to produce sputum
covid test neagtive
completed zosyn and cefednir, will not need atb on dc
pulm following
# Hypomagnesemia
maintain >2, replete prn
# ROSANNA likely due to IV Lasix
resolved
# IDDM
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
A1C 8.9%
resumes Lantus low dose at 5 units daily (GLOBAL CLIMATE CHANGE RESEARCHER 13 units daily)
- uncontrolled as started pureed diet, will increase to 10u
goal bg 140-180 while inpatient, ccdiet, accuchecks
SSI coverage.
# Clinical deconditioning per
Pt has not been out of room much
PT OT recc SNF
# Subjective back pain
check thoracic/lumbar XR when able
resolved, likely muscle strain
# Dementia, unknown type
Pt is awake but not orientated. This appears to be her baseline MS per
Dispo: SNF
DVT Prophylaxis: Lovenox SQ
Code Status: Full
Anticipated Discharge: 24 - 48 hours
Subjective/Interval History
-
Date of Service: April 16, 2024
seen and examined
had a small bloody nose
-per herself dryed blood in nose
-per nursing fresh smear blood over philtrum area
Objective Data
-
Vital Signs:
Vital Signs
Temp Pulse Resp BP Pulse Ox
98.1 F 86 17 143/86 96
04/16/24 11:24 04/16/24 08:00 04/16/24 08:00 04/16/24 08:00 04/16/24 08:00
I&O
04/15/24 04/16/24 04/17/24
06:59 06:59 06:59
Intake Total 240 / 240 120 / 120
Output Total 550 / 550 100 / 100
Balance -310 / -310 20 / 20
--- NOTE | 2024-04-16 15:25 | PTCARENOTE ---
Pt with no further nausea today. She did eat approx 55% of lunch with some encouragement. She has many complaints regarding the quality of food. Pt does need assist in ordering meals but able to feed self with set up. No BM documented x 5 days, po
Senekot given
[2024-04-16] MEDS: SENOKOT-S 1 TABLET PO (15:33)
--- NOTE | 2024-04-16 16:19 | CM ---
Addendum entered by Mónica Pantoja 04/18/24 12:59:
Per Cate at [facility], Call Ref #[id number], BLS ambulance with O2 does not require precert.
Addendum entered by Mónica Pantoja 04/18/24 12:37:
CM confirmed authorization for transfer to [facility] auth#[id number] has been approved. [facility] is able to accept in transfer today.
Transport form and Ambulance PMNC completed; Ale is concerned about the cost of the ambulance. Call placed to [facility] to request ambulance precert and cost.
Report # [phone] [phone]
or [phone]
Addendum entered by Mónica Pantoja 04/17/24 10:50:
[facility] Auth has been pended for medical review. CM will continue to follow to facilitate transfer when approval received.
Original Note:
Approval for SNF transfer received from [facility] this afternoon. Call to [place] and spoke with Chayito. She will try to coordinate with nursing to be able to accomodate admission, however it may not be until tomorrow.
CM to follow, awaiting approval to send patient to [place] with approved [employer] auth #[id number].
Report # [phone]
or [phone]
[2024-04-16 17:00] LABS: Glucose - Point of Care 129 mg/dl (70-99)
--- NOTE | 2024-04-16 18:06 | PTCARENOTE ---
Miralax encouraged multiple times throughout the day today but pt continually declined, she was accepting of Senekot this afternoon but no results yet. arrived and he reports that she often struggles with constipation and they use p.o.
Senekot and p.o. dulcolox. Pt transferred to [facility] via Wheelchair, present and accompanied pt to new room.
--- NOTE | 2024-04-16 18:12 | PTCARENOTE ---
Received pt from IMU via WC; accompanied by IMU RN. Pt awake and alert;oriented to self/place; forgetful. AVENDAÑO; transferred to bed with assist x1/walker; no c/o weakness/dizziness. Fall prec maintained. VSS. PLaced on telemetry:NSR. On nc 2
lpm-pulse ox 97%, no SOB noted. Abd soft, rounded, BS (+). Pt ? incont of urine; wears Depends; asked pt if she knows when she has to urinate; pt responded 'Maybe'. Afebrile, warm and dry; heel foams intact. Oriented to 4East, currently resting
quietly. Will continue to monitor.
[2024-04-16] MEDS: LOPRESSOR 5 MG IV (18:27)
[2024-04-16] MEDS: FLUSH (NSS) 1 FLUSH IV (18:27)
--- NOTE | 2024-04-16 18:34 | PTCARENOTE ---
Noted telemetry to be showing afib to 140's; pt sleeping but easily arousable; no c/o. BP 104/61. lopressor [address] Beena nye. Will continue to monitor.
--- NOTE | 2024-04-16 18:51 | PTCARENOTE ---
Telemetry currently showing NSR 60's; pt without c/o; sleeping. Will continue to monitor.
[2024-04-16 21:59] LABS: Glucose - Point of Care 180 mg/dl (70-99)
[2024-04-16] MEDS: LANTUS SC (22:12)
[2024-04-16] MEDS: LANTUS 0.1 UNITS SC (22:30)
[2024-04-17 03:45] VITALS: BP 136/85
[2024-04-17 07:00] VITALS: BP 140/69
[2024-04-17 07:16] LABS: Glucose - Point of Care 174 mg/dl (70-99)
[2024-04-17] MEDS: ELIQUIS 5 MG PO ×2 (08:41→20:06)
[2024-04-17] MEDS: CARDIZEM CD 120 MG PO ×2 (08:41→20:05)
[2024-04-17] MEDS: NOVOLOG FLEXPEN-LOW RESISTANCE 1 UNITS SC (08:42)
[2024-04-17] MEDS: FLUSH (NSS) 1 FLUSH IV (08:42)
[2024-04-17] MEDS: NOVOLOG FLEXPEN 4 UNITS SC ×3 (08:42→17:48)
[2024-04-17] MEDS: DULCOLAX 10 MG RECTAL (10:52)
[2024-04-17 11:00] VITALS: BP 132/71
--- NOTE | 2024-04-17 11:49 | W.PN.HOSP.TC ---
Today's Communication/Plan
-
Wean oxygen as tolerated maintain SpO2 greater than 92%
This goes into SVT with a Marte C check EKG and have her bear down or blow into a small caliber syringe. If still refractory provide IV Lopressor as needed that is ordered
Awaiting bed authorization at [facility]
Assessment / Plan
Assessment / Plan
General: No Apparent Distress, Conversant and Cachectic
HEENT: Normocephalic (DMM), Atraumatic and Oxygen (8l)
Respiratory: Rhonchi (bibasilar)
Cardiac: Irregular Rhythm and Tachycardic
GI: Soft, Nontender and Nondistended
Musculoskeletal: No Clubbing, No Cyanosis and No Edema
Skin: Warm, Dry and IV Access / Catheter Site
Neuro: Awake, Alert, Oriented, No Motor Deficits and Nonfocal/Grossly Intact
Psych: Calm
A/P:
#PAFIB with RVR/SVT with aberrancy (AVNRT)
monitor on tele
potential trigger - pneumonitis/infection vs hypovolemia in the setting of receiving iv diuretics
cards following
-continue ccb po, for which we have room on if she continues to go into these intermittent small episodes
-continue ac that was started by cardiology
-prn beta-julius IV
# Acute hypoxic resp failure due to aspiration pneumonitis from given soda and sugar during unresponsive episode
now on 1-2l, conitnue to wean o2 as toelrated, maintain goal spo2 >92%
hold diuretics, repeat bmp in the AM, if Cr stable will resume diuretics potentially EOD for hx of HFpEF
procal negative, now up, could be start of early pna for which it take typically 5-10days for aspiration pna to develop after pneumonitis event
check sputum culture if able to produce sputum
covid test neagtive
completed zosyn and cefednir, will not need atb on dc
pulm following
# Hypomagnesemia
maintain >2, replete prn
# ROSANNA likely due to IV Lasix
resolved
# IDDM
# Concern for hypoglycemia PULP TESTER
A1C 8.9%
resumes Lantus low dose at 5 units daily (PULP TESTER 13 units daily)
- uncontrolled as started pureed diet, will increase to 10u
goal bg 140-180 while inpatient, ccdiet, accuchecks
SSI coverage.
# Clinical deconditioning per
Pt has not been out of room much
PT OT recc SNF
# Subjective back pain
check thoracic/lumbar XR when able
resolved, likely muscle strain
# Dementia, unknown type
Pt is awake but not orientated. This appears to be her baseline MS per
Dispo: SNF
DVT Prophylaxis: Lovenox SQ
Code Status: Full
Anticipated Discharge: Within 24 hours
Subjective/Interval History
-
Date of Service: April 17, 2024
Seen and examined. No new complaints. No acute overnight events.
Sitting in chair comfortably eating breakfast.
Nurse was going to try her off oxygen
Per nursing staff once she got overt to the telemetry unit from IMU states had a brief run of SVT that resolved with plan to a small caliber syringe and Lopressor was provided
Objective Data
-
Vital Signs:
Vital Signs
Temp Pulse Resp BP Pulse Ox
97.8 F 78 16 140/69 92
04/17/24 07:00 04/17/24 08:41 04/17/24 07:00 04/17/24 08:41 04/17/24 08:53
I&O
04/16/24 04/17/24 04/18/24
06:59 06:59 06:59
Intake Total 120 / 120 1040 / 1040
Output Total 100 / 100
Balance 20 / 20 1040 / 1040
[2024-04-17 12:41] LABS: Glucose - Point of Care 144 mg/dl (70-99)
[2024-04-17] MEDS: NOVOLOG FLEXPEN-LOW RESISTANCE SC ×2 (12:43→17:41)
[2024-04-17 15:00] VITALS: BP 109/53
[2024-04-17 16:53] LABS: Glucose - Point of Care 92 mg/dl (70-99)
--- NOTE | 2024-04-17 17:23 | PTCARENOTE ---
Noted at 1700, that pt's telemetry reading tachycardia, HR 160s ? SVT, has hx. Pt asymptomatic, sitting in bed eating dinner. Had pt bear down and HR after bearing down, 90s, back in SR, will continue to monitor.
[2024-04-17 19:47] VITALS: BP 130/71
[2024-04-17 21:55] LABS: Glucose - Point of Care 76 mg/dl (70-99)
[2024-04-17] MEDS: LANTUS SC (22:36)
--- NOTE | 2024-04-17 23:26 | PTCARENOTE ---
Pts blood sugar 76, pt very anxious, drowsy. Given Jello per request. House COUTURIERE aware order to hold lantus.
[2024-04-17 23:41] LABS: Glucose - Point of Care 165 mg/dl (70-99)
[2024-04-17 23:49] VITALS: BP 112/59
[2024-04-18 03:14] VITALS: BP 140/77
[2024-04-18 07:25] LABS: Glucose - Point of Care 317 mg/dl (70-99)
[2024-04-18 07:35] VITALS: BP 148/74
--- NOTE | 2024-04-18 07:42 | PN.DE.MGMTRT ---
Insulin Management
- -
04/18/2024: Diabetes Management F/U:
73 Year old female with PMH: A-Fib, Dementia, Hx of Left femur fracture. Patient admitted 04/08, diabetes management consult placed 04/13, s/p hypoglycemia, glucose 45 @ home, then given juice and sugar. On arrival to hospital developed respiratory
distress, most likely due to aspiration.
Prior to admission records indicate patient was taking 13 units Lantus in AM with ss NovoLog for meals and metformin 500 mg daily. A1C on admission 8.9%. CR 0.6, eGFR > 60. Lantus was resumed at 10 units at HS with moderate corrective insulin.
Pt awake, alert, oriented to self with some confusion, remains on dysphagia diet.
Glucose trended 92 to 174 yesterday. Lantus was held at HS for a blood sugar of 76. Fasting 317 this AM
Will make no changes to current regimen. Cont NovoLog 4units AC, Lantus 10 units @ HS with low corrective insulin.
Discussed with nurse and emphasized need to administer long acting insulin @ HS if blood sugars is NOT<70 to avoid escalations in fasting glucose.
Diabetes History
- -
Type of Diabetes: 2 requiring insulin
Pre-Admission Diabetes Regimen
Lab Results
Hemoglobin A1c 8.9 % (4.0-5.6) H 04/09/24 05:49
Insulin Pump Settings
IP Diabetes Regimen
04/17/24 04/17/24 04/17/24
12:39 16:52 21:53
POC Glucose 144 H 92 76
04/17/24 04/18/24
23:39 07:19
POC Glucose 165 H 317 H
Meal type: Lunch
Amount consumed: 55%
Patient Education
[2024-04-18] MEDS: NOVOLOG FLEXPEN 4 UNITS SC ×2 (09:24→12:08)
[2024-04-18] MEDS: NOVOLOG FLEXPEN-LOW RESISTANCE 4 UNITS SC (09:24)
[2024-04-18] MEDS: ELIQUIS 5 MG PO (09:25)
[2024-04-18] MEDS: CARDIZEM CD 120 MG PO (09:25)
[2024-04-18 11:21] VITALS: BP 159/77
[2024-04-18 11:47] LABS: Glucose - Point of Care 295 mg/dl (70-99)
[2024-04-18] MEDS: NOVOLOG FLEXPEN-LOW RESISTANCE 3 UNITS SC (12:07)
--- NOTE | 2024-04-18 14:20 | CM ---
[facility] authorization approval confirmed with [facility] for transfer to [facility]. Ambulance transport does not require precert per [facility]; call reference number [id number].
Patient is alert and oriented; wants to wait for her to leave. She has not been able to reach him via phone. I attempted to reach him via phone as well without success. VM left with message to contact his or the nursing station.
PMNC and Transport for provided to [facility] for ambulance arrangements w/O2.
[facility] Report: [phone]
--- NOTE | 2024-04-18 14:45 | PTCARENOTE ---
Attempted to call report to [facility] x 2- no one available to take report; message left/phone # faxed to facility to call me for report if desired.
--- NOTE | 2024-04-18 15:11 | PTCARENOTE ---
Attempted repeat phone calls x4 to [facility] to give report on pt. Latest phone # [phone] X [phone]- no answer. Message left to return call @ [phone] for report.
[2024-04-18 15:26] VITALS: BP 109/77
--- NOTE | 2024-04-19 08:40 | W.DS.TRANS ---
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
-
Discharge Instructions:
Discharge Diagnosis/Procedures Hypoglycemia
Aspiration pneumonitis
Aspiration pneumonia
ROSANNA
Hyperglycemia
IDDM, Paroxysmal Atrial Fibrillation (not on OAC
), Left Femur Fracture s/p ORIF
Diet Low Cholesterol,Low Fat,2 Gram Sodium,Diabetic,
Carb Controlled,No added salt
Additional Diets IDDSI 6 soft and bite sized meal.
Driving Restrictions No driving
Bathing Restrictions None
Instructions: Aspiration Pneumonia (DC)
Stand-Alone Forms:
Changes to Home Medications: No
Discharge Medications:
DC Medications w/original date entered in [employer]
losartan 25 mg tablet 25 mg PO DAILY Blood Pressure 04/08/24
vit C 333.3 mg-olive leaf extract 333.3 [id number] 83.3 mg capsule (Immune Essentials) 1 cap PO DAILY Supplement 04/08/24
apixaban 5 mg tablet (Eliquis) 5 mg PO BID #60 tabs 04/11/24
cefdinir 300 mg capsule 300 mg PO Q12 2 days #4 caps 04/15/24
diltiazem HCl 120 mg capsule,extended release 24 hr 120 mg PO BID 30 days #60 caps 04/15/24
insulin aspart U-100 100 unit/mL (3 mL) subcutaneous pen 2 unit (0.02 mL) SC AC 30 days #1.8 mL 04/15/24
insulin glargine 100 unit/mL (3 mL) subcutaneous pen (Lantus Solostar U-100 Insulin) 10 unit (0.1 mL) SC QPM #15 mL 04/15/24
polyethylene glycol 3350 17 gram oral powder packet (HealthyLax) 17 g PO DAILYPRN PRN constipation #30 ea 04/15/24
Home Medication Changes
Pending Results: No
== END 2024-04-18 15:50 | DRG 177 ==
LOC: 4 EAST ACU 09:38
PROVIDERS: Hospitalist; Internal Medicine; Internal Medicine Critical Care Medicine; Nurse Practitioner Gerontology; Student in an Organized Health Care Education/Training Program; ADMITTING PHYSICIAN Internal Medicine; ATTENDING PHYSICIAN Internal Medicine; CONSULT PHYSICIAN Internal Medicine Critical Care Medicine; CONSULT PHYSICIAN Internal Medicine Infectious Disease; EMERGENCY PHYSICIAN Student in an Organized Health Care Education/Training Program; OTHER PHYSICIAN Internal Medicine Cardiovascular Disease
PROC: 5A0945A Assistance with Respiratory Ventilation, 24-96 Consecutive Hours, High Flow/Velocity Cannula (ICD-10-PCS; 2024-04-08)
PROC: 5A19054 Respiratory Ventilation, Single, Nonmechanical (ICD-10-PCS; 2024-04-08)
DX: J69.0 Pneumonitis due to inhalation of food and vomit (principal); I50.33 Acute on chronic diastolic (congestive) heart failure; J96.01 Acute respiratory failure with hypoxia; I47.10 Supraventricular tachycardia, unspecified; R64 Cachexia; E87.20 Acidosis, unspecified; N17.8 Other acute kidney failure; Z68.1 Body mass index [BMI] 19.9 or less, adult; E11.649 Type 2 diabetes mellitus with hypoglycemia without coma; I11.0 Hypertensive heart disease with heart failure; F03.90 Unspecified dementia, unspecified severity, without behavioral disturbance, psychotic disturbance, mood disturbance, and anxiety; I95.9 Hypotension, unspecified; N14.19 Nephropathy induced by other drugs, medicaments and biological substances; T50.1X5A Adverse effect of loop [high-ceiling] diuretics, initial encounter; I48.0 Paroxysmal atrial fibrillation; E83.42 Hypomagnesemia; M54.9 Dorsalgia, unspecified; R13.10 Dysphagia, unspecified; R53.81 Other malaise; Z79.4 Long term (current) use of insulin; Z79.84 Long term (current) use of oral hypoglycemic drugs; Z79.899 Other long term (current) drug therapy; Z87.891 Personal history of nicotine dependence; Z87.81 Personal history of (healed) traumatic fracture; Z91.81 History of falling; Z86.16 Personal history of COVID-19
CPT/HCPCS: 36600; 71045; 80048; 80053; 82805; 82962; 83036; 83605; 83735; 83880; 84145; 84439; 84443; 84484; 85025; 87040; 87070; 87811; 90677; 92526; 92610; 93005; 93306; 94002; 94640; 96361; 96365; 96375; 97116; 97163; 97167; 97530; 97535; 99291; G0009; J1160